=== PATIENT | female | born 1935 | race Caucasian/White ===

== ENCOUNTER 2016-11-18 08:46 | Emergency (ER) | payer MEDICARE, BC ==
[2016-11-18] MEDS ORDERED: IPRATROPIUM-ALBUTEROL 3 ML NEB INHALATION STA (09:02)
--- NOTE | 2016-11-18 09:12 | ED ---
SOB HPI - General Chief Complaint: Shortness of Breath Stated Complaint: chest pain, tightness, weakness Time Seen by Provider: 11/18/16 08:53 Source: patient, RN notes reviewed, old records reviewed Mode of arrival: wheelchair - History of Present Illness Initial Comments: This is a 81-year-old female History of overdose who states she was a smoker but quit in 1980 and complains of having shortness of breath this morning some nausea no chest also some dizziness. She states also had difficulty walking because of this. She denies any headache neck pain focal weakness or upper or lower extremities no fevers chills or sweats no overt cough or phlegm production no dysuria hematuria. She has no known diagnosed history of heart or lung disease. MD Complaint: shortness of breath - Related Data Home Medications Medication Instructions Recorded Confirmed Phenytoin Sodium Extended 300 mg PO HS 09/13/15 11/18/16 [Dilantin] Meloxicam [Mobic] 15 mg PO DAILY 11/18/16 11/18/16 Vit C/E/Zn/Coppr/Lutein/Zeaxan 1 cap PO BID 11/18/16 11/18/16 [Preservision Areds 2 Softgel] Vits A,C,E/Lutein/Minerals 1 tab PO DAILY 11/18/16 11/18/16 [Ocuvite with Lutein Tablet] Previous Rx's Medication Instructions Recorded Albuterol Inhaler [Ventolin Hfa 2 puff INHALATION Q6HR PRN #1 11/18/16 Inhaler] inhaler Allergies Allergy/AdvReac Type Severity Reaction Status Date / Time Penicillins Allergy Rash/Hives Verified 11/18/16 09:17 iodine AdvReac "passed Verified 11/18/16 09:17 out" Review of Systems ROS Statement: Those systems with pertinent positive or pertinent negative responses have been documented in the HPI. ROS Other: All systems not noted in ROS Statement are negative. Past Medical History Past Medical History: Seizure Disorder Additional Past Medical History / Comment(s): [id number] seizures, macular degeneration History of Any Multi-Drug Resistant Organisms: None Reported Past Surgical History: Back Surgery, Section, Hysterectomy Additional Past Surgical History / Comment(s): craniotomy during times of seizures, shoulder surgery, cyst removed from left breast Past Psychological History: No Psychological Hx Reported Smoking Status: Former smoker Past Alcohol Use History: Daily Past Drug Use History: None Reported General Exam - General Exam Comments Initial Comments: This is a well-developed well-nourished awake alert oriented 3 female General appearance: alert, in no apparent distress Head exam: Present: atraumatic, normocephalic, normal inspection Eye exam: Present: normal appearance, PERRL, EOMI. Absent: scleral icterus, conjunctival injection, periorbital swelling ENT exam: Present: normal exam, mucous membranes moist Neck exam: Present: normal inspection. Absent: tenderness, meningismus, lymphadenopathy Respiratory exam: Present: decreased breath sounds. Absent: respiratory distress, wheezes, rales, rhonchi, stridor Cardiovascular Exam: Present: regular rate, normal rhythm, normal heart sounds. Absent: systolic murmur, diastolic murmur, rubs, gallop, clicks GI/Abdominal exam: Present: soft, normal bowel sounds. Absent: distended, tenderness, guarding, rebound, rigid Extremities exam: Present: normal inspection, full ROM, normal capillary refill. Absent: tenderness, pedal edema, joint swelling, calf tenderness Back exam: Present: normal inspection Neurological exam: Present: alert, oriented X3, CN II-XII intact Psychiatric exam: Present: normal affect, normal mood Skin exam: Present: warm, dry, intact, normal color. Absent: rash Course Vital Signs 11/18/16 11/18/16 11/18/16 08:50 08:55 09:37 Temperature 97.5 F L Pulse Rate 62 62 Respiratory 18 Rate Blood Pressure 141/115 O2 Sat by Pulse 94 L 100 Oximetry 11/18/16 11/18/16 11/18/16 09:50 10:05 11:09 Temperature Pulse Rate 72 64 Respiratory 20 20 Rate Blood Pressure 120/58 O2 Sat by Pulse 98 Oximetry Medical Decision Making - Medical Decision Making Patient is asymptomatic does feel improved after the nebulizer treatment. A repeat labs show a normal potassium level. Patient will be discharged is follow -up with her doctor and return when necessary I did encourage her increase her oral fluids - Lab Data Result diagrams: 11/18/16 10:08 11/18/16 11:05 Lab Results 11/18/16 11/18/16 11/18/16 Range/Units 09:15 10:08 10:08 WBC 4.0 (3.8-10.6) k/uL RBC 4.47 (3.80-5.40) m/uL Hgb 14.4 (11.4-16.0) gm/dL Hct 43.5 (34.0-46.0) % MCV 97.2 (80.0-100.0) fL MCH 32.2 (25.0-35.0) pg MCHC 33.1 (31.0-37.0) g/dL RDW 13.1 (11.5-15.5) % Plt Count 250 (150-450) k/uL Neutrophils % 49 % Lymphocytes % 33 % Monocytes % 10 % Eosinophils % 5 % Basophils % 1 % Neutrophils # 2.0 (1.3-7.7) k/uL Lymphocytes # 1.3 (1.0-4.8) k/uL Monocytes # 0.4 (0-1.0) k/uL Eosinophils # 0.2 (0-0.7) k/uL Basophils # 0.0 (0-0.2) k/uL PT 11.1 (9.0-12.0) sec INR 1.1 (<1.1) APTT 27.6 (22.0-30.0) sec D-Dimer 0.20 (<0.60) mg/L FEU Sodium 139 (137-145) mmol/L Potassium 6.1 H (3.5-5.1) mmol/L Chloride 109 H (98-107) mmol/L Carbon Dioxide 20 L (22-30) mmol/L Anion Gap 10 mmol/L BUN 17 (7-17) mg/dL Creatinine 0.62 (0.52-1.04) mg/dL Est GFR (MDRD) Af Amer >60 (>60 ml/min/1.73 sqM) Est GFR (MDRD) Non-Af >60 (>60 ml/min/1.73 sqM) Glucose 107 H (74-99) mg/dL Calcium 9.9 (8.4-10.2) mg/dL Magnesium 2.2 (1.6-2.3) mg/dL Total Bilirubin 0.7 (0.2-1.3) mg/dL AST 37 H (14-36) U/L ALT 40 (9-52) U/L Alkaline Phosphatase 61 (38-126) U/L Total Creatine Kinase (30-135) U/L CK-MB (CK-2) (0.0-2.4) ng/mL CK-MB (CK-2) Rel Index Troponin I NT-Pro-B Natriuret Pep pg/mL Total Protein 7.6 (6.3-8.2) g/dL Albumin 4.3 (3.5-5.0) g/dL 11/18/16 11/18/16 11/18/16 Range/Units 10:08 10:08 11:05 WBC (3.8-10.6) k/uL RBC (3.80-5.40) m/uL Hgb (11.4-16.0) gm/dL Hct (34.0-46.0) % MCV (80.0-100.0) fL MCH (25.0-35.0) pg MCHC (31.0-37.0) g/dL RDW (11.5-15.5) % Plt Count (150-450) k/uL Neutrophils % % Lymphocytes % % Monocytes % % Eosinophils % % Basophils % % Neutrophils # (1.3-7.7) k/uL Lymphocytes # (1.0-4.8) k/uL Monocytes # (0-1.0) k/uL Eosinophils # (0-0.7) k/uL Basophils # (0-0.2) k/uL PT (9.0-12.0) sec INR (<1.1) APTT (22.0-30.0) sec D-Dimer (<0.60) mg/L FEU Sodium (137-145) mmol/L Potassium (3.5-5.1) mmol/L Chloride (98-107) mmol/L Carbon Dioxide (22-30) mmol/L Anion Gap mmol/L BUN (7-17) mg/dL Creatinine (0.52-1.04) mg/dL Est GFR (MDRD) Af Amer (>60 ml/min/1.73 sqM) Est GFR (MDRD) Non-Af (>60 ml/min/1.73 sqM) Glucose (74-99) mg/dL Calcium (8.4-10.2) mg/dL Magnesium (1.6-2.3) mg/dL Total Bilirubin (0.2-1.3) mg/dL AST (14-36) U/L ALT (9-52) U/L Alkaline Phosphatase (38-126) U/L Total Creatine Kinase 65 (30-135) U/L CK-MB (CK-2) 1.4 (0.0-2.4) ng/mL CK-MB (CK-2) Rel Index 2.2 Troponin I Cancelled <0.012 NT-Pro-B Natriuret Pep 253 pg/mL Total Protein (6.3-8.2) g/dL Albumin (3.5-5.0) g/dL 11/18/16 Range/Units 11:05 WBC (3.8-10.6) k/uL RBC (3.80-5.40) m/uL Hgb (11.4-16.0) gm/dL Hct (34.0-46.0) % MCV (80.0-100.0) fL MCH (25.0-35.0) pg MCHC (31.0-37.0) g/dL RDW (11.5-15.5) % Plt Count (150-450) k/uL Neutrophils % % Lymphocytes % % Monocytes % % Eosinophils % % Basophils % % Neutrophils # (1.3-7.7) k/uL Lymphocytes # (1.0-4.8) k/uL Monocytes # (0-1.0) k/uL Eosinophils # (0-0.7) k/uL Basophils # (0-0.2) k/uL PT (9.0-12.0) sec INR (<1.1) APTT (22.0-30.0) sec D-Dimer (<0.60) mg/L FEU Sodium (137-145) mmol/L Potassium 4.6 (3.5-5.1) mmol/L Chloride (98-107) mmol/L Carbon Dioxide (22-30) mmol/L Anion Gap mmol/L BUN (7-17) mg/dL Creatinine (0.52-1.04) mg/dL Est GFR (MDRD) Af Amer (>60 ml/min/1.73 sqM) Est GFR (MDRD) Non-Af (>60 ml/min/1.73 sqM) Glucose (74-99) mg/dL Calcium (8.4-10.2) mg/dL Magnesium (1.6-2.3) mg/dL Total Bilirubin (0.2-1.3) mg/dL AST (14-36) U/L ALT (9-52) U/L Alkaline Phosphatase (38-126) U/L Total Creatine Kinase (30-135) U/L CK-MB (CK-2) (0.0-2.4) ng/mL CK-MB (CK-2) Rel Index Troponin I NT-Pro-B Natriuret Pep pg/mL Total Protein (6.3-8.2) g/dL Albumin (3.5-5.0) g/dL - EKG Data -: EKG Interpreted by Co EKG shows normal: sinus rhythm (Sinus rhythm a rate of 79 DE interval 154 QRS 76 QT/QTC of 414/49 evidence a left exodeviation this is compared with EKG dated 09/11/15) - Radiology Data Radiology results: report reviewed (I did review the imaging and report no acute findings.), image reviewed Disposition Clinical Impression: Bronchospasm, acute, Dehydration Disposition: HOME SELF-CARE Condition: Good Instructions: Bronchospasm (ED), Dehydration (ED) Prescriptions: Albuterol Inhaler [Ventolin Hfa Inhaler] 2 puff INHALATION Q6HR PRN #1 inhaler PRN Reason: Dyspnea Referrals: Kenna Diaz DO [Primary Care Provider] - 1-2 days
[2016-11-18 09:46] LABS: Anion Gap 10 mmol/L; Calcium 9.9 mg/dL (8.4-10.2); Carbon Dioxide 20 mmol/L (22-30); Chloride 109 mmol/L (98-107); Glucose 107 mg/dL (74-99); Non-African American GFR(MDRD) >60 (>60 ml/min/1.73 sqM); Sodium 139 mmol/L (137-145); Total Bilirubin 0.7 mg/dL (0.2-1.3); Total Protein 7.6 g/dL (6.3-8.2)
[2016-11-18 09:48] LABS: Blood Urea Nitrogen 17 mg/dL (7-17); Potassium 6.1 mmol/L (3.5-5.1)
[2016-11-18 09:49] LABS: ALT 40 U/L (9-52); AST 37 U/L (14-36); Alkaline Phosphatase 61 U/L (38-126); Magnesium 2.2 mg/dL (1.6-2.3)
--- NOTE | 2016-11-18 10:29 | XR ---
EXAMINATION TYPE: XR chest 2V DATE OF EXAM: 11/18/2016 COMPARISON: 10/20/2015 HISTORY: Shortness of breath TECHNIQUE: Frontal and lateral views of the chest are obtained. FINDINGS: Scattered senescent parenchymal changes noted. Hyperinflation compatible with COPD. No evidence for infiltrate. No evidence for atelectasis. Heart size is stable. Mediastinal structures are stable and grossly unremarkable. No evidence for hilar prominence. Degenerative changes dorsal spine. IMPRESSION: 1. No evidence for acute pulmonary disease.
[2016-11-18 10:33] LABS: Basophils % (A) 1 %; CH 32.3; CHCM 33.3; Eosinophils # (A) 0.2 k/uL (0-0.7); Eosinophils % (A) 5 %; HCT 43.5 % (34.0-46.0); HDW 1.99; HGB 14.4 gm/dL (11.4-16.0); Luc # (Auto) 0.11; Luc % (Auto) 3; Lymphocytes # (A) 1.3 k/uL (1.0-4.8); Lymphocytes % (A) 33 %; MCH 32.2 pg (25.0-35.0); MCHC 33.1 g/dL (31.0-37.0); MCV 97.2 fL (80.0-100.0); Mean Platelet Volume 7.6; Monocytes # (A) 0.4 k/uL (0-1.0); Monocytes % (A) 10 %; Neutrophils % (A) 49 %; RBC 4.47 m/uL (3.80-5.40); RDW 13.1 % (11.5-15.5); WBC (Perox) 4.14
[2016-11-18 10:36] LABS: INR 1.1 (<1.1); Partial Thromboplastin Time 27.6 sec (22.0-30.0); Prothrombin Time 11.1 sec (9.0-12.0)
[2016-11-18 10:43] LABS: Creatine Kinase MB 1.4 ng/mL (0.0-2.4)
[2016-11-18 12:30] VITALS: BP 106/53; PULSE 63; RESP 18; TEMP 98.2
== END 2016-11-18 12:49 | disposition home or self-care (01) ==
LOC: EC 08:46
DX: J98.01 Acute bronchospasm (principal); E86.0 Dehydration; G40.909 Epilepsy, unspecified, not intractable, without status epilepticus; Z87.891 Personal history of nicotine dependence; Z79.1 Long term (current) use of non-steroidal anti-inflammatories (NSAID); Z79.899 Other long term (current) drug therapy; Z88.0 Allergy status to penicillin; Z91.09 Other allergy status, other than to drugs and biological substances; Z86.69 Personal history of other diseases of the nervous system and sense organs
CPT/HCPCS: 36415; 71020; 80053; 82550; 82553; 83735; 83880; 84132; 84484; 85025; 85379; 85610; 85730; 93005; 94640; 99285

== ENCOUNTER 2018-07-26 06:21 | Observation (INO) | payer MEDICARE, BC ==
[2018-07-26] MEDS ORDERED: SODIUM CHLORIDE 0.9% 500 ML 500 ML IV ONE (06:48)
[2018-07-26] MEDS ORDERED: ACETAMINOPHEN TAB 325 MG TAB PO STA (06:49)
[2018-07-26] MEDS ORDERED: IBUPROFEN 600 MG TAB PO STA (07:11)
--- NOTE | 2018-07-26 07:11 | ED ---
General Adult HPI - General Source: patient Mode of arrival: ambulatory Limitations: no limitations <BaileeAshish - Last Filed: 07/26/18 07:10> - General Source: RN notes reviewed <Chad Lyon - Last Filed: 07/26/18 07:16> - General Chief complaint: Upper Respiratory Infection Stated complaint: Difficulty Breathing, Chest Pain Time Seen by Provider: 07/26/18 07:16 - Related Data Home Medications Medication Instructions Recorded Confirmed Phenytoin Sodium Extended 300 mg PO HS 09/13/15 11/18/16 [Dilantin] Meloxicam [Mobic] 15 mg PO DAILY 11/18/16 11/18/16 Vit C/E/Zn/Coppr/Lutein/Zeaxan 1 cap PO BID 11/18/16 11/18/16 [Preservision Areds 2 Softgel] Vits A,C,E/Lutein/Minerals 1 tab PO DAILY 11/18/16 11/18/16 [Ocuvite with Lutein Tablet] Previous Rx's Medication Instructions Recorded Albuterol Inhaler [Ventolin Hfa 2 puff INHALATION Q6HR PRN #1 11/18/16 Inhaler] inhaler Allergies Allergy/AdvReac Type Severity Reaction Status Date / Time Penicillins Allergy Rash/Hives Verified 07/26/18 06:26 iodine AdvReac "passed Verified 07/26/18 06:26 out" Review of Systems ROS Other: All systems not noted in ROS Statement are negative. <BaileeAshish - Last Filed: 07/26/18 07:10> ROS Other: All systems not noted in ROS Statement are negative. <Chad Lyon - Last Filed: 07/26/18 07:16> ROS Statement: Those systems with pertinent positive or pertinent negative responses have been documented in the HPI. Past Medical History Past Medical History: Seizure Disorder Additional Past Medical History / Comment(s): [id number] seizures, macular degeneration History of Any Multi-Drug Resistant Organisms: None Reported Past Surgical History: Back Surgery, Section, Hysterectomy Additional Past Surgical History / Comment(s): craniotomy during times of seizures, shoulder surgery, cyst removed from left breast Past Psychological History: No Psychological Hx Reported Smoking Status: Former smoker Past Alcohol Use History: Daily Past Drug Use History: None Reported <BaileeAshish - Last Filed: 07/26/18 07:10> General Exam Limitations: no limitations <Ashish Morocho - Last Filed: 07/26/18 07:10> Course <Ashish Morocho - Last Filed: 07/26/18 07:10> <Chad Lyon - Last Filed: 07/26/18 07:16> Vital Signs 07/26/18 07/26/18 07/26/18 06:24 07:00 07:02 Temperature 100.8 F H 102.5 F H Pulse Rate 113 H 105 H Respiratory 24 20 18 Rate Blood Pressure 152/85 144/72 O2 Sat by Pulse 95 98 Oximetry - Reevaluation(s) Reevaluation #1: 07/26/18 06:43 Case discussed with triage and initial orders entered to expedite outpatient care. (Ashish Morocho) Disposition <Ashish Morocho - Last Filed: 07/26/18 07:10> <Chad Lyon - Last Filed: 07/26/18 07:16> Referrals: Kenna Diaz DO [Primary Care Provider] - 1-2 days
[2018-07-26] MEDS ORDERED: OSELTAMIVIR 75 MG CAP PO STA (07:20)
--- NOTE | 2018-07-26 07:20 | ED ---
General Adult HPI - General Source: patient Mode of arrival: ambulatory Limitations: no limitations <Ashish Morocho - Last Filed: 07/26/18 07:20> - General Source: RN notes reviewed <Chad Lyon - Last Filed: 07/26/18 08:44> - General Chief complaint: Upper Respiratory Infection Stated complaint: Difficulty Breathing, Chest Pain Time Seen by Provider: 07/26/18 06:43 - History of Present Illness Initial comments: This is an 83-year-old female who presents emergency Department with a three-day history of cough. Patient states yesterday got considerably worse and she was coughing quite a bit of sputum. Patient states she did get influenza shot. Patient states she has had a high fever and today she felt like she had a brick on her chest and it made her come to the emergency department. On arrival patient was above 140. Patient also states she's a little short of breath as well. Patient denies any abdominal pain. Patient denies any nausea vomiting diarrhea. Patient denies headache patient denies numbness weakness. Patient denies lightheadedness dizziness or near syncopal episode. (Chad Lyon) - Related Data Home Medications Medication Instructions Recorded Confirmed Phenytoin Sodium Extended 300 mg PO HS 09/13/15 07/26/18 [Dilantin] Meloxicam [Mobic] 15 mg PO Q48H 11/18/16 07/26/18 Vit C/E/Zn/Coppr/Lutein/Zeaxan 1 cap PO BID 11/18/16 07/26/18 [Preservision Areds 2 Softgel] Cholecalciferol [Vitamin D3] 1,000 unit PO DAILY 07/26/18 07/26/18 Allergies Allergy/AdvReac Type Severity Reaction Status Date / Time Penicillins Allergy Rash/Hives Verified 07/26/18 08:16 iodine AdvReac "passed Verified 07/26/18 08:16 out" Review of Systems ROS Other: All systems not noted in ROS Statement are negative. <Ashish Morocho - Last Filed: 07/26/18 07:20> ROS Other: All systems not noted in ROS Statement are negative. <Chad Lyon - Last Filed: 07/26/18 08:44> ROS Statement: Those systems with pertinent positive or pertinent negative responses have been documented in the HPI. Past Medical History Past Medical History: Seizure Disorder Additional Past Medical History / Comment(s): [id number] seizures, macular dege neration History of Any Multi-Drug Resistant Organisms: None Reported Past Surgical History: Back Surgery, Section, Hysterectomy Additional Past Surgical History / Comment(s): craniotomy during times of seizures, shoulder surgery, cyst removed from left breast Past Psychological History: No Psychological Hx Reported Smoking Status: Former smoker Past Alcohol Use History: Daily Past Drug Use History: None Reported <Ashish Morocho - Last Filed: 07/26/18 07:20> General Exam Limitations: no limitations <Ashish Morocho - Last Filed: 07/26/18 07:20> <Chad Lyon - Last Filed: 07/26/18 08:44> - General Exam Comments Initial Comments: GENERAL: Patient is well-developed and well-nourished. Patient is nontoxic and well- hydrated and is in mild distress. ENT: Neck is soft and supple. No significant lymphadenopathy is noted. Oropharynx is clear. Moist mucous membranes. Neck has full range of motion without eliciting any pain. EYES: The sclera were anicteric and conjunctiva were pink and moist. Extraocular movements were intact and pupils were equal round and reactive to light. Eyelids were unremarkable. PULMONARY: Patient is a few crackles in the right base CARDIOVASCULAR: Patient is tachycardic at about 110 beats a minute. ABDOMEN: Soft and nontender with normal bowel sounds. No palpable organomegaly was noted. There is no palpable pulsatile mass. SKIN: Skin is clear with no lesions or rashes and otherwise unremarkable. NEUROLOGIC: Patient is alert and oriented x3. Cranial nerves II through XII are grossly intact. Motor and sensory are also intact. Normal speech, volume and content. Symmetrical smile. MUSCULOSKELETAL: Normal extremities with adequate strength and full range of motion. No lower extremity swelling or edema. No calf tenderness. LYMPHATICS: No significant lymphadenopathy is noted PSYCHIATRIC: Normal psychiatric evaluation. (Chad Lyon) Course <Ashish Morocho - Last Filed: 07/26/18 07:20> <Chad Lyon - Last Filed: 07/26/18 08:44> Vital Signs 07/26/18 07/26/18 07/26/18 06:24 07:00 07:02 Temperature 100.8 F H 102.5 F H Pulse Rate 113 H 110 H 105 H Respiratory 24 20 18 Rate Blood Pressure 152/85 144/72 144/72 O2 Sat by Pulse 95 98 Oximetry 07/26/18 07:30 Temperature Pulse Rate 137 H Respiratory 22 Rate Blood Pressure O2 Sat by Pulse 100 Oximetry - Reevaluation(s) Reevaluation #1: 07/26/18 06:43 case discussed with triage and orders entered to expedite patient care. (Ashish Morocho) Medical Decision Making <Ashish Morocho - Last Filed: 07/26/18 07:20> - Lab Data Result diagrams: 07/26/18 06:55 07/26/18 06:55 <Chad Lyon - Last Filed: 07/26/18 08:44> - Medical Decision Making EKG shows supraventricular tachycardia with occasional PVC at a rate of 144 bpm QRS is 76 QT interval is 286 QTC is 442. Patient's EKG shows no ST segment elevation however there is some slight ST segment depression in precordial leads V3 through V6. Repeat EKG was done with the patient's heart rate slowed it showed a sinus tachycardia at 107 bpm MN interval 174 QRS is 70 QT interval 340 QTC is 453. Patient's EKG shows no ST segment elevation or depression. Patient's chest x-ray showed no obvious infiltrate. Patient received Tamiflu in the emergency department because she was influenza A+. Patient's heart rate came down nicely after the temperature came down and her chest heaviness has been relieved. (Chad Lyon) - Lab Data Lab Results 07/26/18 07/26/18 07/26/18 Range/Units 06:51 06:55 06:55 WBC 9.2 (3.8-10.6) k/uL RBC 4.29 (3.80-5.40) m/uL Hgb 13.4 (11.4-16.0) gm/dL Hct 42.1 (34.0-46.0) % MCV 98.1 (80.0-100.0) fL MCH 31.2 (25.0-35.0) pg MCHC 31.8 (31.0-37.0) g/dL RDW 12.8 (11.5-15.5) % Plt Count 307 (150-450) k/uL Neutrophils % 77 % Lymphocytes % 10 % Monocytes % 8 % Eosinophils % 2 % Basophils % 1 % Neutrophils # 7.1 (1.3-7.7) k/uL Lymphocytes # 0.9 L (1.0-4.8) k/uL Monocytes # 0.7 (0-1.0) k/uL Eosinophils # 0.2 (0-0.7) k/uL Basophils # 0.1 (0-0.2) k/uL PT (9.0-12.0) sec INR (<1.2) APTT (22.0-30.0) sec Sodium 139 (137-145) mmol/L Potassium 4.6 (3.5-5.1) mmol/L Chloride 105 (98-107) mmol/L Carbon Dioxide 25 (22-30) mmol/L Anion Gap 9 mmol/L BUN 14 (7-17) mg/dL Creatinine 0.53 (0.52-1.04) mg/dL Est GFR (CKD-EPI)AfAm >90 (>60 ml/min/1.73 sqM) Est GFR (CKD-EPI)NonAf 90 (>60 ml/min/1.73 sqM) Glucose 116 H (74-99) mg/dL Plasma Lactic Acid Dangelo (0.7-2.0) mmol/L Calcium 9.7 (8.4-10.2) mg/dL Total Bilirubin 0.5 (0.2-1.3) mg/dL AST 33 (14-36) U/L ALT 44 (9-52) U/L Alkaline Phosphatase 77 (38-126) U/L Troponin I (0.000-0.034) ng/mL Total Protein 7.9 (6.3-8.2) g/dL Albumin 4.4 (3.5-5.0) g/dL Influenza Type A RNA Detected H (Not Detectd) Influenza Type B (PCR) Not Detected (Not Detectd) 07/26/18 07/26/18 07/26/18 Range/Units 06:55 06:55 06:55 WBC (3.8-10.6) k/uL RBC (3.80-5.40) m/uL Hgb (11.4-16.0) gm/dL Hct (34.0-46.0) % MCV (80.0-100.0) fL MCH (25.0-35.0) pg MCHC (31.0-37.0) g/dL RDW (11.5-15.5) % Plt Count (150-450) k/uL Neutrophils % % Lymphocytes % % Monocytes % % Eosinophils % % Basophils % % Neutrophils # (1.3-7.7) k/uL Lymphocytes # (1.0-4.8) k/uL Monocytes # (0-1.0) k/uL Eosinophils # (0-0.7) k/uL Basophils # (0-0.2) k/uL PT 10.7 (9.0-12.0) sec INR 1.0 (<1.2) APTT 24.3 (22.0-30.0) sec Sodium (137-145) mmol/L Potassium (3.5-5.1) mmol/L Chloride (98-107) mmol/L Carbon Dioxide (22-30) mmol/L Anion Gap mmol/L BUN (7-17) mg/dL Creatinine (0.52-1.04) mg/dL Est GFR (CKD-EPI)AfAm (>60 ml/min/1.73 sqM) Est GFR (CKD-EPI)NonAf (>60 ml/min/1.73 sqM) Glucose (74-99) mg/dL Plasma Lactic Acid Dangelo 1.4 (0.7-2.0) mmol/L Calcium (8.4-10.2) mg/dL Total Bilirubin (0.2-1.3) mg/dL AST (14-36) U/L ALT (9-52) U/L Alkaline Phosphatase (38-126) U/L Troponin I <0.012 (0.000-0.034) ng/mL Total Protein (6.3-8.2) g/dL Albumin (3.5-5.0) g/dL Influenza Type A RNA (Not Detectd) Influenza Type B (PCR) (Not Detectd) Disposition <Ashish Morocho - Last Filed: 07/26/18 07:20> Time of Disposition: 08:44 <Chad Lyon - Last Filed: 07/26/18 08:44> Clinical Impression: Influenza A, SVT (supraventricular tachycardia), Chest pain Disposition: ADMITTED IP TO THIS HOSP Referrals: Kenna Diaz DO [Primary Care Provider] - 1-2 days
[2018-07-26] MEDS: SODIUM CHLORIDE 0.9% 500 ML 500 ML IV SCH ×2 (07:31→08:09)
[2018-07-26 07:33] LABS: Basophils # (A) 0.1 k/uL (0-0.2); Basophils % (A) 1 %; Eosinophils # (A) 0.2 k/uL (0-0.7); Eosinophils % (A) 2 %; HCT 42.1 % (34.0-46.0); HGB 13.4 gm/dL (11.4-16.0); Lymphocytes # (A) 0.9 k/uL (1.0-4.8); Lymphocytes % (A) 10 %; MCH 31.2 pg (25.0-35.0); MCHC 31.8 g/dL (31.0-37.0); MCV 98.1 fL (80.0-100.0); Mean Platelet Volume 6.5; Monocytes # (A) 0.7 k/uL (0-1.0); Monocytes % (A) 8 %; Neutrophils # (A) 7.1 k/uL (1.3-7.7); Neutrophils % (A) 77 %; Platelet Count 307 k/uL (150-450); RBC 4.29 m/uL (3.80-5.40); RDW 12.8 % (11.5-15.5); WBC 9.2 k/uL (3.8-10.6)
[2018-07-26 07:43] LABS: Partial Thromboplastin Time 24.3 sec (22.0-30.0); Prothrombin Time 10.7 sec (9.0-12.0)
[2018-07-26 07:44] LABS: AST 33 U/L (14-36); Albumin 4.4 g/dL (3.5-5.0); Anion Gap 9 mmol/L; Blood Urea Nitrogen 14 mg/dL (7-17); Calcium 9.7 mg/dL (8.4-10.2); Carbon Dioxide 25 mmol/L (22-30); Chloride 105 mmol/L (98-107); Glucose 116 mg/dL (74-99); Potassium 4.6 mmol/L (3.5-5.1); Sodium 139 mmol/L (137-145); Total Bilirubin 0.5 mg/dL (0.2-1.3); Total Protein 7.9 g/dL (6.3-8.2)
[2018-07-26 07:45] LABS: ALT 44 U/L (9-52); Alkaline Phosphatase 77 U/L (38-126)
--- NOTE | 2018-07-26 08:15 | XR ---
EXAMINATION TYPE: XR chest 2V DATE OF EXAM: 07/26/2018 COMPARISON: 11/18/2016 HISTORY: 83-year-old female with fever TECHNIQUE: PA and lateral views FINDINGS: Heart normal size. Bilateral hilar prominence. Some focal density right mid to lower lung and some ad ditional patchy opacity along the left heart margin. Hyperinflation with flattening of the hemidiaphr agms. IMPRESSION: 1. COPD and focal patchy opacity at the left midlung could represent small area of pneumonia. 2. Some subtle nodular density right midlung and bilateral hilar prominence. Hilar prominence could r eflect underlying pulmonary arterial hypertension. Given patient's increased risk for development of lung cancer, recommend nonemergent follow-up CT chest after any potential treatment for more detailed assessment of the lung parenchyma.
[2018-07-26] MEDS ORDERED: NITROGLYCERIN SL TABS 0.4 MG TAB SUBLINGUAL PRN (08:46)
[2018-07-26] MEDS ORDERED: ASPIRIN 81 MG PO STA (08:46)
[2018-07-26] MEDS ORDERED: IBUPROFEN 400 MG TAB PO PRN (08:53)
[2018-07-26 09:21] LABS: Appearance,Urine Clear (Clear); Bilirubin,Urine Negative (Negative); Blood,Urine Negative (Negative); Color,Urine Colorless; Glucose,Urine (UA) Negative (Negative); Ketones,Urine Negative (Negative); Leukocyte Esterase,Urine Negative (Negative); Nitrite,Urine Negative (Negative); Protein,Urine Negative (Negative); Specific Gravity,Urine 1.007 (1.001-1.035); Urobilinogen,Urine <2.0 mg/dL (<2.0)
[2018-07-26] MEDS: NITROGLYCERIN OINT 1 INCH/GM PACKET TOPICAL SCH ×3 (10:52→23:10)
--- NOTE | 2018-07-26 13:00 | P.HPIM ---
History of Present Illness Chief Complaint: Chest pressure, cough This very pleasant 83-year-old female. The patient says that her was sick with cough a few days ago and she started coughing 3 days ago initially the cough is dry but later on started to produce greenish phlegm. She also started having chest pressure and heaviness in the chest. She was also noticing that she's having racing heart. The so she came into the ER for further urology management. She otherwise does not complain of any fever or chills, no abdominal pain, nausea and vomiting, no diarrhea constipation, no headache, loss of vision or blurry vision, no tingling numbness on in the extremities, no itch or rash she does not complain of any dizziness or lightheadedness next ER course-in the ER, her heart rate was in 140s. EKG shows SVT in the beginning. The BP was 170/58 satting 96% on room air respirations 17-22. Labwork was done which showed WBC 9.2 hemoglobin 13.4 platelets 307 sodium 139 potassium 4.6 and BUN 42 creatinine 0.53 lactic acid is 1.4 influenza A was positive, troponin was 0.012 chest x-ray showed left mid lung pneumonia. They recommended follow-up CAT scan after adequate treatment to rule out cancer. Patient was given Tamiflu and admitted to the hospitalist service for further evaluation and management Review of Systems All systems: negative Past Medical History Past Medical History: Cancer, Eye Disorder, Osteoarthritis (OA), Seizure Disorder Additional Past Medical History / Comment(s): [id number] seizures, R eye macular degeneration, told she has "alittle irregular heartbeat at times.", arthritis in her back, skin cancer with removal. History of Any Multi-Drug Resistant Organisms: None Reported Past Surgical History: Back Surgery, Breast Surgery, Section, Hysterectomy, Orthopedic Surgery Additional Past Surgical History / Comment(s): Brain biopsy during times of seizures, R submandibular ductoplasty, R shoulder rotator cuff surgery, low back surgery, cyst removed from left breast, colonoscopy. Past Anesthesia/Blood Transfusion Reactions: No Reported Reaction Additional Past Anesthesia/Blood Transfusion Reaction / Comment(s): Pt has never received blood. Smoking Status: Former smoker - Past Family History Father Family Medical History: COPD Additional Family Medical History / Comment(s): Father was a smoker and had emphysema. Mother Family Medical History: No Reported History Additional Family Medical History / Comment(s): Mother was healthy and lived to be 85yrs old. Brother(s) Family Medical History: Cancer Additional Family Medical History / Comment(s): Brother had esophageal cancer. Medications and Allergies Home Medications Medication Instructions Recorded Confirmed Type Phenytoin Sodium Extended 300 mg PO HS 09/13/15 07/26/18 History [Dilantin] Meloxicam [Mobic] 15 mg PO Q48H 11/18/16 07/26/18 History Vit C/E/Zn/Coppr/Lutein/Zeaxan 1 cap PO BID 11/18/16 07/26/18 History [Preservision Areds 2 Softgel] Cholecalciferol [Vitamin D3] 1,000 unit PO DAILY 07/26/18 07/26/18 History Allergies Allergy/AdvReac Type Severity Reaction Status Date / Time Penicillins Allergy Rash/Hives Verified 07/26/18 08:16 iodine AdvReac "passed Verified 07/26/18 08:16 out" Physical Exam Vitals: Vital Signs Temp Pulse Pulse Resp BP BP Pulse Ox 07/26/18 11:35 108 H 17 07/26/18 11:33 98.3 F 108 H 17 117/58 96 07/26/18 09:45 98.5 F 104 H 17 120/57 96 07/26/18 09:07 105 H 22 108/63 97 07/26/18 09:00 105 H 22 130/66 07/26/18 08:53 99.4 F 07/26/18 08:30 104 H 22 110/68 100 07/26/18 08:00 101 H 22 144/72 99 07/26/18 07:30 137 H 22 100 07/26/18 07:02 102.5 F H 105 H 18 144/72 98 07/26/18 07:00 110 H 20 144/72 07/26/18 06:24 100.8 F H 113 H 24 152/85 95 Intake and Output 07/25/18 07/26/18 07/26/18 22:59 06:59 14:59 Intake Total 10 Balance 10 Intake: IV 10 Invasive Line 2 10 Other: Weight 45.813 kg On exam, alert and oriented x3. HEENT: Conjunctivae normal. eyes normal. NECK: No JVD. No thyroid enlargement. No LNs CARDIOVASCULAR: S1, S2 positive tachycardic RESPIRATION: Patient is having crackles more on the left side of the lung ABDOMEN: Soft, nontender . No guarding. no masses palpable. No ascites, No hepatosplenomegaly.Bowel sounds heard. LEGS: No edema. no swelling NERVOUS SYSTEM: Cranial N 2-12 grossly normal. Moves all 4 limbs. No focal deficits. No sensory deficit. No signs of cerebellar dysfucntion. Skin: no ulcer no rash Results CBC & Chem 7: 07/26/18 06:55 07/26/18 06:55 Labs: Abnormal Lab Results - Last 24 Hours (Table) 07/26/18 07/26/18 07/26/18 Range/Units 06:51 06:55 06:55 Lymphocytes # 0.9 L (1.0-4.8) k/uL Glucose 116 H (74-99) mg/dL Influenza Type A RNA Detected H (Not Detectd) Thrombosis Risk Factor Assmnt - Choose All That Apply Any of the Below Risk Factors Present?: Yes Other Risk Factors: Yes Each Risk Factor Represents 2 Points: Malignancy Each Risk Factor Represents 3 Points: Age 75 years or older Other congenital or acquired thrombophilia - If yes, enter type in comment: No Thrombosis Risk Factor Assessment Total Risk Factor Score: 5 Thrombosis Risk Factor Assessment Level: High Risk Assessment and Plan Assessment: - Left lung pneumonia - Influenza A - SVT now in sinus tach - History of COPD and - History of seizures Plan - We'll admit the patient to [facility] [place] with telemetry - We'll start the patient Levaquin and continue Tamiflu - The patient will need an computed tomography scan of the chest as an outpatient after 4 weeks - Cardiology on board, will order for echocardiogram and monitor troponin levels - We'll resume rest of the patient's home medications - DVT and GI prophylaxis - We'll order for lab work in the morning - Expected length of stay more than 2 midnights - Patient is full code Time with Patient: Greater than 30
[2018-07-26] MEDS ORDERED: IPRATROPIUM-ALBUTEROL 3 ML NEB INHALATION PRN (13:01)
--- NOTE | 2018-07-26 15:25 | P.CRDCN ---
History of Present Illness Consult date: 07/26/18 History of present illness: This is a 83-year-old female with no significant past cardiac history, has been having symptoms of cough, shortness of breath and flulike symptoms for the last 3 to 4 days. Her also has similar problem. Patient was also feeling intermittent palpitations. She complained of some heaviness in the chest, which reminded her of for pneumonia that she had in the past. Patient was seen in the emergency room. She was found to have tachyarrhythmia which appears to be atypical fibrillation with rapid ventricular response. Patient converted back to sinus rhythm. She is being treated for influenza A and pneumonia. No history of previous atrial fibrillation. Most of hypertension, diabetes, previous myocardial infarction or strokes. We will going to initiate her on heparin drip and convert to oral anti-cognition therapy later on. We'll get an echocardiogram. Patient will initiate on beta blockers. Further recommendations depend upon the clinical course. Review of Systems As per the chart Past Medical History Past Medical History: Cancer, Eye Disorder, Osteoarthritis (OA), Seizure Disorder Additional Past Medical History / Comment(s): [id number] seizures, R eye macular degeneration, told she has "alittle irregular heartbeat at times.", arthritis in her back, skin cancer with removal. History of Any Multi-Drug Resistant Organisms: None Reported Past Surgical History: Back Surgery, Breast Surgery, Section, Hysterectomy, Orthopedic Surgery Additional Past Surgical History / Comment(s): Brain biopsy during times of seizures, R submandibular ductoplasty, R shoulder rotator cuff surgery, low back surgery, cyst removed from left breast, colonoscopy. Past Anesthesia/Blood Transfusion Reactions: No Reported Reaction Additional Past Anesthesia/Blood Transfusion Reaction / Comment(s): Pt has never received blood. Smoking Status: Former smoker - Past Family History Father Family Medical History: COPD Additional Family Medical History / Comment(s): Father was a smoker and had emphysema. Mother Family Medical History: No Reported History Additional Family Medical History / Comment(s): Mother was healthy and lived to be 85yrs old. Brother(s) Family Medical History: Cancer Additional Family Medical History / Comment(s): Brother had esophageal cancer. Medications and Allergies Home Medications Medication Instructions Recorded Confirmed Type Phenytoin Sodium Extended 300 mg PO HS 09/13/15 07/26/18 History [Dilantin] Meloxicam [Mobic] 15 mg PO Q48H 11/18/16 07/26/18 History Vit C/E/Zn/Coppr/Lutein/Zeaxan 1 cap PO BID 11/18/16 07/26/18 History [Preservision Areds 2 Softgel] Cholecalciferol [Vitamin D3] 1,000 unit PO DAILY 07/26/18 07/26/18 History Allergies Allergy/AdvReac Type Severity Reaction Status Date / Time Penicillins Allergy Rash/Hives Verified 07/26/18 08:16 iodine AdvReac "passed Verified 07/26/18 08:16 out" Physical Exam Vitals: Vital Signs Temp Pulse Pulse Resp BP BP Pulse Ox 07/26/18 11:35 108 H 17 07/26/18 11:33 98.3 F 108 H 17 117/58 96 07/26/18 09:45 98.5 F 104 H 17 120/57 96 07/26/18 09:07 105 H 22 108/63 97 07/26/18 09:00 105 H 22 130/66 07/26/18 08:53 99.4 F 07/26/18 08:30 104 H 22 110/68 100 07/26/18 08:00 101 H 22 144/72 99 07/26/18 07:30 137 H 22 100 07/26/18 07:02 102.5 F H 105 H 18 144/72 98 07/26/18 07:00 110 H 20 144/72 07/26/18 06:24 100.8 F H 113 H 24 152/85 95 Intake and Output 07/26/18 07/26/18 07/26/18 06:59 14:59 22:59 Intake Total 370 Balance 370 Intake: IV 10 Invasive Line 2 10 Oral 360 Other: Weight 45.813 kg GENERAL EXAM: Patient is alert and oriented and doesn't appear to be in any acute distress HEENT: Normocephalic. Normal reaction of pupils, equal size, normal range of extraocular motion. No erythema or exudates in the throat. NECK: No masses, no nuchal rigidity. CHEST: No chest wall deformity. LUNGS: Equal air entry with no crackles or wheeze. HEART: S1 and S2 normal with no audible mumurs or gallops. Regular rhythm, femorals equal on both sides.. ABDOMEN: No hepatosplenomegaly, normal bowel sounds, no guarding or rigidity. SKIN: No rashes CENTRAL NERVOUS SYSTEM: No focal deficits. EXTREMITIES: No cyanosis, clubbing or edema. Results 07/26/18 06:55 07/26/18 06:55 Cardiac Enzymes 07/26/18 07/26/18 07/26/18 Range/Units 06:55 06:55 12:56 AST 33 (14-36) U/L Troponin I <0.012 <0.012 (0.000-0.034) ng/mL Coagulation 07/26/18 Range/Units 06:55 PT 10.7 (9.0-12.0) sec APTT 24.3 (22.0-30.0) sec CBC 07/26/18 Range/Units 06:55 WBC 9.2 (3.8-10.6) k/uL RBC 4.29 (3.80-5.40) m/uL Hgb 13.4 (11.4-16.0) gm/dL Hct 42.1 (34.0-46.0) % Plt Count 307 (150-450) k/uL Comprehensive Metabolic Panel 07/26/18 Range/Units 06:55 Sodium 139 (137-145) mmol/L Potassium 4.6 (3.5-5.1) mmol/L Chloride 105 (98-107) mmol/L Carbon Dioxide 25 (22-30) mmol/L BUN 14 (7-17) mg/dL Creatinine 0.53 (0.52-1.04) mg/dL Glucose 116 H (74-99) mg/dL Calcium 9.7 (8.4-10.2) mg/dL AST 33 (14-36) U/L ALT 44 (9-52) U/L Alkaline Phosphatase 77 (38-126) U/L Total Protein 7.9 (6.3-8.2) g/dL Albumin 4.4 (3.5-5.0) g/dL Current Medications Generic Name Dose Route Start Last Admin Trade Name Freq PRN Reason Stop Dose Admin Acetaminophen 650 mg 07/26/18 08:53 Tylenol Tab PO Q6HR PRN Fever and/ or MILD Pain Albuterol/Ipratropium 3 ml 07/26/18 13:01 Duoneb 0.5 Mg-3 Mg/3 Ml Soln INHALATION RT-QID PRN Shortness Of Breath Or Wheezing Aspirin 325 mg 07/27/18 09:00 Aspirin PO DAILY [facility] Cholecalciferol 1,000 unit 07/27/18 09:00 Vitamin D3 PO DAILY NARINDER Levofloxacin 750 mg/ IV 150 mls @ 100 mls/hr 07/26/18 14:00 Solution IVPB Q24H [facility]ER Ibuprofen 400 mg 07/26/18 08:53 07/26/18 10:53 Motrin PO 400 mg Q6HR PRN Administration MODERATE Pain Multivitamins/Minerals 1 each 07/26/18 21:00 Ivite PO BID N[facility]ER Nitroglycerin 1 inch 07/26/18 12:00 07/26/18 10:52 Nitro-Bid Oint TOPICAL 1 inch Q6HR N[facility]ER Administration Nitroglycerin 0.4 mg 07/26/18 08:46 Nitrostat SUBLINGUAL Q5M PRN Chest Pain Oseltamivir Phosphate 30 mg 07/26/18 21:00 Tamiflu PO 07/30/18 21:01 Q12HR NARINDER Phenytoin Sodium 300 mg 07/26/18 21:00 Dilantin PO HS [facility]ER Intake and Output 07/26/18 07/26/18 07/26/18 06:59 14:59 22:59 Intake Total 370 Balance 370 Intake: IV 10 Invasive Line 2 10 Oral 360 Other: Weight 45.813 kg 07/26/18 06:55 07/26/18 06:55 EKG Interpretations (text) Initial EKG showed atrial fibrillation with rapid ventricular response Assessment and Plan (1) Paroxysmal atrial fibrillation Current Visit: Yes Status: Acute Code(s): I48.0 - PAROXYSMAL ATRIAL FIBRILLATION SNOMED Code(s): 234924219 (2) Chest pain Current Visit: Yes Status: Acute Code(s): R07.9 - CHEST PAIN, UNSPECIFIED SNOMED Code(s): 83264515 (3) Influenza A Current Visit: Yes Status: Acute Code(s): J10.1 - FLU DUE TO OTH IDENT INFLUENZA VIRUS W OTH RESP MANIFEST SNOMED Code(s): 300202057 Plan: Continue to follow patient cardiac enzymes. Echocardiogram. Patient will initiate on beta blockers and also IV heparin. Will switch to by mouth anticoagulation therapy. Further recommendations depend upon clinical course.
[2018-07-26] MEDS ORDERED: HEPARIN SODIUM,PORCINE 5,000 UNIT/ML 1 ML VIAL IV ONE (15:36)
[2018-07-26] MEDS ORDERED: HEPARIN SODIUM,PORCINE 5,000 UNIT/ML 1 ML VIAL IV PRN (15:36)
[2018-07-26] MEDS ORDERED: HEPARIN SOD,PORK IN 0.45% NACL 25,000 UNIT in 0.45% NACL 1 250ML.BAG IV SCH (15:45)
[2018-07-26] MEDS: LEVOFLOXACIN 750MG-D5W PMX 750 MG in DEXTROSE/WATER 1 150ML.BAG IVPB SCH (15:56)
[2018-07-26 16:15] LABS: Basophils % (A) 1 %; Eosinophils # (A) 0.1 k/uL (0-0.7); Eosinophils % (A) 1 %; HCT 36.9 % (34.0-46.0); HGB 12.2 gm/dL (11.4-16.0); Lymphocytes # (A) 0.8 k/uL (1.0-4.8); Lymphocytes % (A) 9 %; MCH 32.4 pg (25.0-35.0); MCHC 33.1 g/dL (31.0-37.0); Mean Platelet Volume 6.4; Monocytes # (A) 0.4 k/uL (0-1.0); Monocytes % (A) 5 %; Neutrophils # (A) 7.3 k/uL (1.3-7.7); Neutrophils % (A) 83 %; Platelet Count 261 k/uL (150-450); RBC 3.76 m/uL (3.80-5.40); RDW 12.8 % (11.5-15.5); WBC 8.7 k/uL (3.8-10.6)
[2018-07-26 16:26] LABS: Partial Thromboplastin Time 27.7 sec (22.0-30.0)
[2018-07-26] MEDS: ACETAMINOPHEN TAB 325 MG TAB PO PRN ×2 (17:06→23:13)
[2018-07-26] MEDS: OSELTAMIVIR 60 MG/10 ML ORAL SYRINGE PO SCH (20:40)
[2018-07-26] MEDS: METOPROLOL TARTRATE 25 MG TAB PO SCH (20:40)
[2018-07-26] MEDS: PHENYTOIN SODIUM EXTENDED 100 MG CAP PO SCH (20:41)
[2018-07-26] MEDS: VIT A,C & E-LUTEIN-MINERALS 1 EACH TAB PO SCH (20:42)
[2018-07-26] MEDS ORDERED: OSELTAMIVIR 75 MG CAP PO SCH (21:00)
[2018-07-27] MEDS: NITROGLYCERIN OINT 1 INCH/GM PACKET TOPICAL SCH (05:03)
[2018-07-27 07:10] LABS: Basophils % (A) 0 %; Eosinophils % (A) 0 %; HCT 36.8 % (34.0-46.0); HGB 11.7 gm/dL (11.4-16.0); Lymphocytes # (A) 0.9 k/uL (1.0-4.8); Lymphocytes % (A) 12 %; MCHC 31.7 g/dL (31.0-37.0); Mean Platelet Volume 6.9; Monocytes # (A) 0.6 k/uL (0-1.0); Monocytes % (A) 8 %; Neutrophils # (A) 5.8 k/uL (1.3-7.7); Neutrophils % (A) 77 %; Platelet Count 229 k/uL (150-450); RBC 3.76 m/uL (3.80-5.40); RDW 12.8 % (11.5-15.5); WBC 7.6 k/uL (3.8-10.6)
[2018-07-27 07:25] LABS: Cholesterol 142 mg/dL (<200); HDL Cholesterol 106 mg/dL (40-60); LDL Cholesterol,Calculated 26 mg/dL (0-99); Triglycerides 49 mg/dL (<150)
[2018-07-27] MEDS: CHOLECALCIFEROL 1,000 UNIT TAB PO SCH (08:26)
[2018-07-27] MEDS: VIT A,C & E-LUTEIN-MINERALS 1 EACH TAB PO SCH ×2 (08:27→21:20)
[2018-07-27] MEDS: METOPROLOL TARTRATE 25 MG TAB PO SCH ×2 (08:27→21:19)
[2018-07-27] MEDS ORDERED: ASPIRIN 325 MG TAB PO SCH (09:00)
[2018-07-27] MEDS: OSELTAMIVIR 60 MG/10 ML ORAL SYRINGE PO SCH ×2 (09:30→21:20)
[2018-07-27] MEDS: APIXABAN 5 MG TAB PO SCH ×2 (10:42→21:19)
[2018-07-27] MEDS: LEVOFLOXACIN 750MG-D5W PMX 750 MG in DEXTROSE/WATER 1 150ML.BAG IVPB SCH (10:42)
--- NOTE | 2018-07-27 13:39 | P.PN ---
Subjective Progress Note Date: 07/27/18 This is a 83-year-old female with no significant past cardiac history, has been having symptoms of cough, shortness of breath and flulike symptoms for the last 3 to 4 days. Her also has similar problem. Patient was also feeling intermittent palpitations. She complained of some heaviness in the chest, which reminded her of for pneumonia that she had in the past. Patient was seen in the emergency room. She was found to have tachyarrhythmia which appears to be atypical fibrillation with rapid ventricular response. Patient converted back to sinus rhythm. She is being treated for influenza A and pneumonia. No history of previous atrial fibrillation. Most of hypertension, diabetes, prev ious myocardial infarction or strokes. We will going to initiate her on heparin drip and convert to oral anti-cognition therapy later on. We'll get an echocardiogram. Patient will initiate on beta blockers. Further recommendations depend upon the clinical course. 07/27/2018 Patient seen and examined this morning, overall she's feeling better. She does continue to have a cough. Remaining in normal sinus rhythm today. Heparin has been discontinued as well as aspirin patient has been initiated on Eliquis. Objective - Vital Signs Vital signs: Vital Signs Temp 98.7 F 07/27/18 11:10 Pulse 71 07/27/18 11:11 Resp 17 07/27/18 11:11 BP 105/59 07/27/18 11:10 Pulse Ox 95 07/27/18 11:10 Intake & Output 07/26/18 07/27/18 07/27/18 18:59 06:59 18:59 Intake Total 2380 10 800 Output Total 500 Balance 1880 10 800 Weight 66.1 kg Intake: IV 1220 10 20 Invasive Line 2 20 10 20 Levofloxacin 750Mg-D5w 150 Pmx 750 mg In Dextrose/ Water 1 150ml.bag @ 100 mls/hr IVPB Q24H [facility] Rx#: [id number] Sodium Chloride 0.9% 500 500 ml 500 ml @ 1000 mls/hr IV Q35M [facility] Rx#:[id number] Sodium Chloride 0.9% 500 500 ml 500 ml @ 999 mls/hr IV .Q31M ONE Rx#:[id number] cefTRIAXone 1 gm In 50 Sodium Chloride 0.9% 50 ml @ 100 mls/hr IVPB ONCE STA Rx#:[id number] Oral 1160 780 Output: Urine 500 Other: Voiding Method Toilet Toilet # Voids 1 1 - Exam GENERAL EXAM: Patient is alert and oriented and doesn't appear to be in any acute distress HEENT: Normocephalic. Normal reaction of pupils, equal size, normal range of extraocular motion. No erythema or exudates in the throat. NECK: No masses, no nuchal rigidity. CHEST: No chest wall deformity. LUNGS: Equal air entry with no crackles or wheeze. HEART: S1 and S2 normal with no audible mumurs or gallops. Regular rhythm, femorals equal on both sides.. ABDOMEN: No hepatosplenomegaly, normal bowel sounds, no guarding or rigidity. SKIN: No rashes CENTRAL NERVOUS SYSTEM: No focal deficits. EXTREMITIES: No cyanosis, clubbing or edema. - Labs CBC & Chem 7: 07/27/18 06:31 07/26/18 06:55 Labs: Abnormal Lab Results - Last 24 Hours (Table) 07/26/18 07/26/18 07/27/18 Range/Units 15:46 23:22 06:31 RBC 3.76 L (3.80-5.40) m/uL Lymphocytes # 0.8 L (1.0-4.8) k/uL APTT 53.7 H (22.0-30.0) sec HDL Cholesterol 106 H (40-60) mg/dL 07/27/18 Range/Units 06:31 RBC 3.76 L (3.80-5.40) m/uL Lymphocytes # 0.9 L (1.0-4.8) k/uL APTT (22.0-30.0) sec HDL Cholesterol (40-60) mg/dL Microbiology - Last 24 Hours (Table) 07/26/18 08:55 Urine Culture - Final Urine,Voided 07/26/18 07:43 Blood Culture - Preliminary Blood No Growth after 24 hours Assessment and Plan Plan: Assessment and plan #1 influenza A with pneumonia #2 paroxysmal atrial fibrillation remaining in normal sinus rhythm Plan We will review the echocardiogram with Doppler study. From our perspective, we'll discontinue the IV heparin and start the patient on Eliquis, discontinue aspirin. DNP note has been reviewed, I agree with a documented findings and plan of care. Patient was seen and examined.
--- NOTE | 2018-07-27 13:44 | P.PN ---
Subjective Patient says that she's feeling better per shortness of breath and cough are better. She did have fever last night No chest pain racing heart Objective - Vital Signs Vital signs: Vital Signs Temp 98.7 F 07/27/18 11:10 Pulse 71 07/27/18 11:11 Resp 17 07/27/18 11:11 BP 105/59 07/27/18 11:10 Pulse Ox 95 07/27/18 11:10 Intake & Output 07/26/18 07/27/18 07/27/18 18:59 06:59 18:59 Intake Total 2380 10 800 Output Total 500 Balance 1880 10 800 Weight 66.1 kg Intake: IV 1220 10 20 Invasive Line 2 20 10 20 Levofloxacin 750Mg-D5w 150 Pmx 750 mg In Dextrose/ Water 1 150ml.bag @ 100 mls/hr IVPB Q24H [facility] Rx#: [id number] Sodium Chloride 0.9% 500 500 ml 500 ml @ 1000 mls/hr IV Q35M [facility] Rx#:[id number] Sodium Chloride 0.9% 500 500 ml 500 ml @ 999 mls/hr IV .Q31M ONE Rx#:[id number] cefTRIAXone 1 gm In 50 Sodium Chloride 0.9% 50 ml @ 100 mls/hr IVPB ONCE STA Rx#:[id number] Oral 1160 780 Output: Urine 500 Other: Voiding Method Toilet Toilet # Voids 1 1 - Exam On exam, alert and oriented x3. HEENT: Conjunctivae normal. eyes normal. NECK: No JVD. No thyroid enlargement. No LNs CARDIOVASCULAR: S1-S2 positive Respiratory Brreath sounds diminished in the bases. No rhonchi or crackles. No bronchial breathing. ABDOMEN: Soft, nontender . No guarding. no masses palpable. No ascites, No hepatosplenomegaly.Bowel sounds heard. LEGS: No edema. no swelling NERVOUS SYSTEM: Cranial N 2-12 grossly normal. Moves all 4 limbs. No focal deficits. No sensory deficit. No signs of cerebellar dysfucntion. Skin: no ulcer no rash - Labs CBC & Chem 7: 07/27/18 06:31 07/26/18 06:55 Labs: Abnormal Lab Results - Last 24 Hours (Table) 07/26/18 07/26/18 07/27/18 Range/Units 15:46 23:22 06:31 RBC 3.76 L (3.80-5.40) m/uL Lymphocytes # 0.8 L (1.0-4.8) k/uL APTT 53.7 H (22.0-30.0) sec HDL Cholesterol 106 H (40-60) mg/dL 07/27/18 Range/Units 06:31 RBC 3.76 L (3.80-5.40) m/uL Lymphocytes # 0.9 L (1.0-4.8) k/uL APTT (22.0-30.0) sec HDL Cholesterol (40-60) mg/dL Microbiology - Last 24 Hours (Table) 07/26/18 08:55 Urine Culture - Final Urine,Voided 07/26/18 07:43 Blood Culture - Preliminary Blood No Growth after 24 hours Assessment and Plan Assessment: - Left lung pneumonia - Influenza A - SVT now in sinus tach - History of COPD and - History of seizures Plan - Continue Levaquin and Tamiflu - Patient was started on liquids by cardiology - Ray control as of now - Continue rest of the medications - If patient continues to do better and if no more fevers for 24 hours, Patient might be able to go home Time with Patient: Greater than 30
--- NOTE | 2018-07-27 17:41 | ECHOF ---
Referral Reason:SVT MEASUREMENTS -------- HEIGHT: 132.1 cm WEIGHT: 45.8 kg BP: RVIDd: 2.0 cm (< 3.3) IVSd: 0.7 cm (0.6 - 1.1) LVIDd: 3.9 cm (3.9 - 5.3) LVPWd: 0.9 cm (0.6 - 1.1) IVSs: 1.3 cm LVIDs: 2.6 cm LVPWs: 1.2 cm LA Diam: 4.6 cm (2.7 - 3.8) LAESV Index (A-L): 34.79 ml/m Ao Diam: 2.9 cm (2.0 - 3.7) AV Cusp: 1.8 cm (1.5 - 2.6) LA Diam: 3.8 cm (2.7 - 3.8) MV EXCURSION: 20.347 mm (> 18.000) MV EF SLOPE: 88 mm/s (70 - 150) EPSS: 0.5 cm MV E Christiano: 0.76 m/s MV DecT: 187 ms MV A Christiano: 0.92 m/s MV E/A Ratio: 0.82 RAP: 5.00 mmHg RVSP: 34.88 mmHg FINDINGS -------- Sinus rhythm. This was a technically good study. LV size, wall thickness and systolic function are normal, with an EF greater than 55%. The left yanci tricular size is normal. The right ventricle is normal in size. The left atrium is moderately dilated. LA is moderately dilated 34-39 ml/m2 The right atrial size is normal. The aortic valve is trileaflet, and appears structurally normal. No aortic stenosis or regurgitation. Mild mitral regurgitation is present. Mild tricuspid regurgitation present. There is mild pulmonary hypertension. The right ventricular systolic pressure, as measured by Doppler, is 34.88mmHg. Trace/mild (physiologic) pulmonic regurgitation. The aortic root size is normal. There is no pericardial effusion. CONCLUSIONS -------- 1. LV size, wall thickness and systolic function are normal, with an EF greater than 55%. 2. The left ventricular size is normal. 3. The right ventricle is normal in size. 4. The left atrium is moderately dilated. 5. LA is moderately dilated 34-39 ml/m2 6. The right atrial size is normal. 7. The aortic valve is trileaflet, and appears structurally normal. No aortic stenosis or regurgitati on. 8. Mild mitral regurgitation is present. 9. Mild tricuspid regurgitation present. 10. There is mild pulmonary hypertension. 11. The right ventricular systolic pressure, as measured by Doppler, is 34.88mmHg. 12. Trace/mild (physiologic) pulmonic regurgitation. 13. The aortic root size is normal. 14. There is no pericardial effusion. PAYROLL EXAMINER: Radha Enamorado RDCS
[2018-07-27] MEDS: PHENYTOIN SODIUM EXTENDED 100 MG CAP PO SCH (21:19)
[2018-07-28 06:18] LABS: Basophils % (A) 0 %; Eosinophils # (A) 0.1 k/uL (0-0.7); Eosinophils % (A) 1 %; HCT 37.2 % (34.0-46.0); HGB 12.4 gm/dL (11.4-16.0); Lymphocytes # (A) 1.8 k/uL (1.0-4.8); Lymphocytes % (A) 28 %; MCHC 33.2 g/dL (31.0-37.0); MCV 96.2 fL (80.0-100.0); Monocytes # (A) 0.4 k/uL (0-1.0); Monocytes % (A) 7 %; Neutrophils % (A) 63 %; Platelet Count 236 k/uL (150-450); RBC 3.86 m/uL (3.80-5.40); RDW 13.1 % (11.5-15.5); WBC 6.3 k/uL (3.8-10.6)
[2018-07-28] MEDS: METOPROLOL TARTRATE 25 MG TAB PO SCH (09:00)
[2018-07-28] MEDS: APIXABAN 5 MG TAB PO SCH (09:00)
[2018-07-28] MEDS: VIT A,C & E-LUTEIN-MINERALS 1 EACH TAB PO SCH (09:00)
[2018-07-28] MEDS: CHOLECALCIFEROL 1,000 UNIT TAB PO SCH (09:00)
[2018-07-28] MEDS: OSELTAMIVIR 60 MG/10 ML ORAL SYRINGE PO SCH (09:24)
[2018-07-28 11:36] VITALS: RESP 16
--- NOTE | 2018-07-28 12:26 | P.PN ---
Subjective Progress Note Date: 07/28/18 This is a 83-year-old female with no significant past cardiac history, has been having symptoms of cough, shortness of breath and flulike symptoms for the last 3 to 4 days. Her also has similar problem. Patient was also feeling intermittent palpitations. She complained of some heaviness in the chest, which reminded her of for pneumonia that she had in the past. Patient was seen in the emergency room. She was found to have tachyarrhythmia which appears to be atypical fibrillation with rapid ventricular response. Patient converted back to sinus rhythm. She is being treated for influenza A and pneumonia. No history of previous atrial fibrillation. Most of hypertension, diabetes, prev ious myocardial infarction or strokes. We will going to initiate her on heparin drip and convert to oral anti-cognition therapy later on. We'll get an echocardiogram. Patient will initiate on beta blockers. Further recommendations depend upon the clinical course. 07/27/2018 Patient seen and examined this morning, overall she's feeling better. She does continue to have a cough. Remaining in normal sinus rhythm today. Heparin has been discontinued as well as aspirin patient has been initiated on Eliquis. 07/28/2018 Patient seen and examined this morning, she underwent a CAT scan of the chest this morning. Remaining in normal sinus rhythm. Overall feeling well and eager to be discharged home. Objective - Vital Signs Vital signs: Vital Signs Temp 97.9 F 07/28/18 11:36 Pulse 67 07/28/18 11:36 Resp 16 07/28/18 11:36 BP 122/61 07/28/18 11:36 Pulse Ox 95 07/28/18 11:36 Intake & Output 07/27/18 07/28/18 07/28/18 18:59 06:59 18:59 Intake Total 1730 120 Balance 1730 120 Weight 46.8 kg Intake: IV 190 Invasive Line 1 10 Invasive Line 2 30 Levofloxacin 750Mg-D5w 150 Pmx 750 mg In Dextrose/ Water 1 150ml.bag @ 100 mls/hr IVPB Q24H [facility] Rx#: [id number] Oral 1540 120 Other: Voiding Method Toilet Toilet Toilet # Voids 2 1 # Bowel Movements 1 - Exam GENERAL EXAM: Patient is alert and oriented and doesn't appear to be in any acute distress HEENT: Normocephalic. Normal reaction of pupils, equal size, normal range of extraocular motion. No erythema or exudates in the throat. NECK: No masses, no nuchal rigidity. CHEST: No chest wall deformity. LUNGS: Equal air entry with no crackles or wheeze. HEART: S1 and S2 normal with no audible mumurs or gallops. Regular rhythm, femorals equal on both sides.. ABDOMEN: No hepatosplenomegaly, normal bowel sounds, no guarding or rigidity. SKIN: No rashes CENTRAL NERVOUS SYSTEM: No focal deficits. EXTREMITIES: No cyanosis, clubbing or edema. - Labs CBC & Chem 7: 07/28/18 05:51 07/26/18 06:55 Labs: Microbiology - Last 24 Hours (Table) 07/26/18 07:43 Blood Culture - Preliminary Blood No Growth after 48 hours 07/26/18 14:26 Blood Culture - Preliminary Blood No Growth after 24 hours 07/26/18 08:55 Urine Culture - Final Urine,Voided Assessment and Plan Plan: Assessment and plan #1 influenza A with pneumonia #2 paroxysmal atrial fibrillation remaining in normal sinus rhythm Plan EchoCardiogram with Doppler study revealed an ejection fraction of 55%. From our perspective patient may be able to be discharged home once cleared by primary. We will follow her now on an as-needed basis only, please don't hesitate to call if you have any questions at all. DNP note has been reviewed, I agree with a documented findings and plan of care. Patient was seen and examined.
--- NOTE | 2018-07-28 12:56 | CT ---
EXAMINATION TYPE: CT chest wo con DATE OF EXAM: 07/28/2018 COMPARISON: Radiographic 07/26/2018 HISTORY: 83-year-old female prominent hilum, possible nodule TECHNIQUE: Contiguous axial scanning of the chest without IV contrast. Coronal and sagittal reconstru ctions performed. CT DLP: 146.5 mGycm Automated exposure control for dose reduction was used. FINDINGS: Heart borderline enlarged without pericardial effusion. Mild coronary vessel calcifications. Ascending aorta normal caliber with normal variant direct takeoff of the left vertebral artery direct ly from the aortic arch. Ectatic lower descending thoracic aorta at 2.5 cm. Borderline sized mediastinal lymph nodes are demonstrated measuring up to 9 mm in the precarinal armando on. There may be a borderline enlarged 1 cm left paraesophageal lymph node just below the level of th e tobi, refer to axial image 29. There is volume loss with consolidation and bronchiectasis inferior lingula and medial basilar right middle lobe. Scattered tree-in-bud opacities are present nodular densities and additional patchy dens ities. Additional scattered tree-in-bud opacities throughout the upper and mid lungs. Follow-up is re commended to ensure stability or resolution of the nodular areas. No pleural effusion. Limited assessment of the upper abdomen to the lack of contrast. Bones: Mild multilevel degenerative disc disease in the thoracic spine. No osseous destructive proces s. IMPRESSION: 1. CONSOLIDATION AND VOLUME LOSS WITH BRONCHIECTASIS OF THE INFERIOR LINGULA AND BASILAR RIGHT MIDDLE LOBE. A FEW SCATTERED TREE-IN-BUD OPACITIES AND ADDITIONAL SCATTERED PATCHY AND NODULAR DENSITIES. C ORRELATE FOR ATYPICAL FUNGAL OR MYCOBACTERIAL INFECTIONS. CONSTELLATION OF FINDINGS CAN BE SEEN IN TH E SETTING OF INDOLENT CHEIKH INFECTION. 2. 3 - 6 MONTH FOLLOW-UP AFTER TREATMENT TO ENSURE STABILITY/RESOLUTION OF THE NODULAR DENSITIES.
[2018-07-28] MEDS ORDERED: LEVOFLOXACIN 750 MG TAB PO SCH (14:00)
[2018-07-28 15:38] VITALS: BP 130/68; PULSE 79; TEMP 98
--- NOTE | 2018-07-28 17:27 | P.CNPUL ---
History of Present Illness Consult date: 07/28/18 Requesting physician: Reid E Sheet Reason for consult: dyspnea, cough, abnormal CXR/CT Chief complaint: Influenza A pneumonia History of present illness: This 83-year-old white female patient of Dr. Evans, with past medical history of seizure disorder, patient is a former smoker, who presented to the emergency department on the 07/26/2018 with a 3 day history of coughing, severe headaches, and production which was greenish in color. Patient was also having some chest pressure and heaviness, and noticed that her heart was racing. Patient's was sick with a cough a few days prior. Patient came into the emergency department for further evaluation and was found to have SVT with a rate in the 140s BPM. Lab work did not show any significant leukocytosis, white blood cell count was 9.2, hemoglobin was 13.4, sodium was 139, potassium was 4.6, BUN was 42 and creatinine was 0.53, lactic acid was within normal limits at 1.4, influenza screen was positive for influenza A. Chest x-ray showed left mid lung patchy opacity specialist for an area of pneumonia. Is also some subtle nodular density in the right midlung and bilateral hilar prominence. Follow-up CT was recommended, which showed consolidation and volume loss with bronchiectasis of the inferior lingula and basilar right middle lobe. Showed a few scattered tree-in-bud opacities and additional scattered patchy and nodular densities, (suggestive for atypical fungal or mycobacterial infection. Patient has been treated with a combination of oral Tamiflu, and she was started on oral Levaquin by the attending physician, today's exam she is calm and comfortable, she is on room air, with a pulse ox of 95%, she is afebrile, no shortness of breath, no chest pain, no significant chest congestion, she is ambulating in the room, she is fully dressed, and she is getting very to be discharged home. Blood and urine cultures showed no growth. She has been in sinus rhythm, and cardiology has been following, he was started on oral anticoagulation the form of Eliquis. We are asked to see the patient in regards to influenza pneumonia, and finnding on the CT chest Review of Systems All systems: negative Constitutional: Denies chills, Denies fever Eyes: denies blurred vision, denies pain Ears, nose, mouth and throat: Denies headache, Denies sore throat Cardiovascular: Reports palpitations, Denies chest pain, Denies shortness of breath Respiratory: Reports cough with sputum, Reports dyspnea, Denies cough Gastrointestinal: Denies abdominal pain, Denies diarrhea, Denies nausea, Denies vomiting Genitourinary: Denies dysuria, Denies hematuria Musculoskeletal: Denies myalgias Integumentary: Denies pruritus, Denies rash Neurological: Denies numbness, Denies weakness Psychiatric: Denies anxiety, Denies depression Endocrine: Denies fatigue, Denies weight change Past Medical History Past Medical History: Cancer, Eye Disorder, Osteoarthritis (OA), Seizure Disorder Additional Past Medical History / Comment(s): 8501-0023 seizures, R eye macular degeneration, told she has "alittle irregular heartbeat at times.", arthritis in her back, skin cancer with removal. History of Any Multi-Drug Resistant Organisms: None Reported Past Surgical History: Back Surgery, Breast Surgery, Section, Hysterectomy, Orthopedic Surgery Additional Past Surgical History / Comment(s): Brain biopsy during times of seizures, R submandibular ductoplasty, R shoulder rotator cuff surgery, low back surgery, cyst removed from left breast, colonoscopy. Past Anesthesia/Blood Transfusion Reactions: No Reported Reaction Additional Past Anesthesia/Blood Transfusion Reaction / Comment(s): Pt has never received blood. Smoking Status: Former smoker - Past Family History Father Family Medical History: COPD Additional Family Medical History / Comment(s): Father was a smoker and had emphysema. Mother Family Medical History: No Reported History Additional Family Medical History / Comment(s): Mother was healthy and lived to be 85yrs old. Brother(s) Family Medical History: Cancer Additional Family Medical History / Comment(s): Brother had esophageal cancer. Medications and Allergies Home Medications Medication Instructions Recorded Confirmed Type Phenytoin Sodium Extended 300 mg PO HS 09/13/15 07/26/18 History [Dilantin] Vit C/E/Zn/Coppr/Lutein/Zeaxan 1 cap PO BID 11/18/16 07/26/18 History [Preservision Areds 2 Softgel] Cholecalciferol [Vitamin D3] 1,000 unit PO DAILY 07/26/18 07/26/18 History Albuterol Inhaler [Ventolin Hfa 1 - 2 puff INHALATION RT-Q6H PRN 07/28/18 Rx Inhaler] #1 inhaler Apixaban [Eliquis] 5 mg PO BID #60 tab 07/28/18 Rx Levofloxacin [Levaquin] 750 mg PO 1400 7 Days #7 tab 07/28/18 Rx Metoprolol Tartrate [Lopressor] 25 mg PO BID #60 tab 07/28/18 Rx Nitroglycerin Sl Tabs [Nitrostat] 0.4 mg SUBLINGUAL Q5M PRN #20 tab 07/28/18 Rx Oseltamivir 6Mg/ml Oral Susp 30 mg PO Q12HR 3 Days #5 oral.syrg 07/28/18 Rx [Tamiflu] Allergies Allergy/AdvReac Type Severity Reaction Status Date / Time Penicillins Allergy Rash/Hives Verified 07/26/18 08:16 iodine AdvReac "passed Verified 07/26/18 08:16 out" Physical Exam Vitals: Vital Signs Temp Pulse Resp BP BP Pulse Ox 07/28/18 15:37 98 F 79 16 130/68 95 07/28/18 11:36 97.9 F 67 16 122/61 95 07/28/18 08:30 98.6 F 87 20 119/75 94 L 07/28/18 04:00 99.0 F 77 15 117/55 94 L 07/28/18 00:11 99.3 F 74 16 115/65 93 L 07/27/18 21:17 99.0 F 92 15 137/63 96 Intake and Output 07/28/18 07/28/18 07/28/18 06:59 14:59 22:59 Intake Total 238 Balance 238 Intake: Oral 238 Other: Voiding Method Toilet Toilet Toilet # Voids 2 1 1 # Bowel Movements 1 Weight 46.8 kg GENERAL EXAM: Alert, pleasant, 83-year-old white female, on room air, ambulating in the room, comfortable in no apparent distress. HEAD: Normocephalic/atraumatic. EYES: Normal reaction of pupils, equal size. Conjunctiva pink, sclera white. NOSE: Clear with pink turbinates. THROAT: No erythema or exudates. NECK: No masses, no JVD, no thyroid enlargement, no adenopathy. CHEST: No chest wall deformity. Symmetrical expansion. LUNGS: Equal air entry with no crackles, wheeze, rhonchi or dullness. CVS: Regular rate and rhythm, normal S1 and S2, no gallops, no murmurs, no rubs ABDOMEN: Soft, nontender. No hepatosplenomegaly, normal bowel sounds, no guarding or rigidity. EXTREMITIES: No clubbing, no edema, no cyanosis, 2+ pulses and upper and lower extremities. MUSCULOSKELETAL: Muscle strength and tone normal. SPINE: No scoliosis or deformity SKIN: No rashes CENTRAL NERVOUS SYSTEM: Alert and oriented -3. No focal deficits, tone is normal in all 4 extremities. PSYCHIATRIC: Alert and oriented -3. Appropriate affect. Intact judgment and insight. Results - Laboratory Findings CBC and BMP: 07/28/18 05:51 07/26/18 06:55 PT/INR, D-dimer PT 11.0 sec (9.0-12.0) 07/26/18 15:46 INR 1.0 (<1.2) 07/26/18 15:46 Abnormal lab findings: Abnormal Labs 07/26/18 07/26/18 07/26/18 06:51 06:55 06:55 RBC Lymphocytes # 0.9 L APTT Glucose 116 H HDL Cholesterol Influenza Type A RNA Detected H 07/26/18 07/26/18 07/27/18 15:46 23:22 06:31 RBC 3.76 L Lymphocytes # 0.8 L APTT 53.7 H Glucose HDL Cholesterol 106 H Influenza Type A RNA 07/27/18 06:31 RBC 3.76 L Lymphocytes # 0.9 L APTT Glucose HDL Cholesterol Influenza Type A RNA - Diagnostic Findings Chest x-ray: report reviewed, image reviewed CT scan - chest: report reviewed, image reviewed Additional studies: EKG reviewed Assessment and Plan Plan: Assessment: #1. Influenza A pneumonia, influenza screen was positive, and chest x-ray showed left middle lobe infiltrate on initial chest x-ray, and nonspecific nodular opacity seen bilaterally, follow-up CT chest today showed consolidation and volume loss with bronchiectasis of the inferior lingula and basilar right middle lobe. There were also findings suggestive of atypical fungal or mycobacterial infections a few scattered tree-in-bud opacities and nodular densities. Will be followed on an outpatient basis, patient will be treated with Levaquin, and seen on outpatient basis for follow-up #2. SVT present on presentation, in sinus rhythm, patient has been evaluated by cardiology #3. History of paroxysmal A. fib, on chronic anticoagulation #4. History of COPD, not oxygen dependent at baseline, #5. History of seizure disorder #6. Mild pulmonary hypertension, echocardiogram showed right sided pressure of 34.8 mmHg. Plan: Patient has been treated with a combination of Tamiflu and Levaquin, chest x-ray and CT chest has been reviewed with Dr. Velazquez, showed some nonspecific nodular opacities bilaterally, and infiltrates bilaterally, and changes suggestive of atypical or mycobacterial infection. Medical patient is improving, no fever or chills in the last 48 hours, vital signs are stable, she is on room air, tolerating ambulation, she has appointment set up with Dr. Bryant and follow-up, she is back in sinus rhythm, heart rate is better controlled, she is on chronic anticoagulation, no acute events overnight. From pulmonary perspective patient is stable for discharge home later course of Tamiflu and Levaquin, she'll see Dr. Bryant in follow-up. I performed a history & physical examination of the patient and discussed their management with my nurse practitioner, Ginna Kent. I reviewed the nurse practitioner's note and agree with the documented findings and plan of care. Lung sounds are positive for clear. The findings and the impression was discussed with the patient. I attest to the documentation by the nurse practitioner. Time with Patient: Greater than 30
--- NOTE | 2018-07-31 22:24 | P.DS ---
Providers Date of admission: 07/26/18 08:48 Attending physician: Lindsey Lopez Consults: 07/26/18 08:46 Consult Physician Urgent Consulting Provider: [facility] Consult Reason/Comments: Chest pain, SVT Do you want consulting provider notified?: Yes Primary care physician: Kenna Diaz Hospital Course: Diagnoses: - Left lung pneumonia - Influenza A - paroxysmal atrial fibrillation - abn CT of the chest (bronchiectasis and a few scattered tree-in-bud opacities and additional scattered patchy and nodular densities suspicious for atypical fungal or mycobacterial infection - History of COPD and - History of seizures Hospital course This is a pleasant 83 years old female with past medical history of seizure disorder. Who presents because of worsening cough and green phlegm of 2 days' duration. Patient denies to me dyspnea or chest pain. Patient influenza a test came back positive and she was treated with Tamiflu and Levaquin. Chest x-ray showing bilateral hilar prominence with left midlung opacity suspicious for pneumonia, COPD changes. And possible right mid lung nodularity. Radiologist recommended CAT scan of the chest which -was done: consolidation and volume loss with bronchiectasis of the inferior lingula and basilar right middle lobe and a few scattered tree-in-bud opacities and additional scattered patchy and nodular densities, (suggestive for atypical fungal or mycobacterial infection). bacause of abn CT, pulmonary team has been consulted , i discussed the case with them and they recommended 7 more days of oral levaquin , a follow up appointment has been set for the pt for follow up. and she agrees with it. With the treatment her cough and phlegm are significantly improved, patient today still me she is back to her baseline and she is ready to go home. Patient denies chest pain, no dyspnea. cardiology evaluated pt for Paroxysmal a fib, recommended to start pt on eliquis, and beta srinivasa. on the day of discharge pt was provided with one syl h supply coupon of Eliquis however she did not want to make Eliquis because she was afraid from side effects. i explained to the pt risk ,benefits and alternatives. she was still not sure if she will take the Eliquis , however i provided her with the script for Eliquis and if she decided not to take Eliquis then another script for baby aspirin and I instructed her to take only one either asa or eliquis and she verbalized understanding and acceptance. son was also present during the whole encounter upon pt request and he took note of these instructions. also i encourage pt to follow up with her pcp and patient support representative as per appointment made for her with these two and she agrees to f/u Patient problems and management plan were discussed with patient in details and she verbalized understanding and acceptance. Risk of lung cancer are explained for the patient for her hilar prominence and possible nodule. Patient was instructed to follow up with pulmonology services, patient verbalized unde rstanding and she agrees and asked medical staff to make pulmonary appointment to which she agrees to go on follow-up with. Patient was found stable and can be discharged home however she needs follow-up as an outpatient. Patient agrees with the appointments and timing. Patient stated that she will make her own appointment with patient support representative, which instructed to follow up with him in 7-10 days. Gen: patient is a AAOx3, no distress CVS: S1-S2, RRR, no murmur Lungs: B/L CTA, no wheezing Abdomen: soft, no distention, no tenderness, positive bowel sounds Extremity: no leg edema or induration Time spent more than 35 minutes Plan - Discharge Summary Discharge Rx Participant: No New Discharge Prescriptions: New Apixaban [Eliquis] 5 mg PO BID #60 tab Levofloxacin [Levaquin] 750 mg PO 1400 7 Days #7 tab Metoprolol Tartrate [Lopressor] 25 mg PO BID #60 tab Nitroglycerin Sl Tabs [Nitrostat] 0.4 mg SUBLINGUAL Q5M PRN #20 tab PRN Reason: Chest Pain Oseltamivir 6Mg/ml Oral Susp [Tamiflu] 30 mg PO Q12HR 3 Days #5 oral.syrg Albuterol Inhaler [Ventolin Hfa Inhaler] 1 - 2 puff INHALATION RT-Q6H PRN #1 inhaler PRN Reason: Shortness Of Breath Or Wheezing Aspirin 81 mg PO DAILY #30 chewable Continue Phenytoin Sodium Extended [Dilantin] 300 mg PO HS Vit C/E/Zn/Coppr/Lutein/Zeaxan [Preservision Areds 2 Softgel] 1 cap PO BID Cholecalciferol [Vitamin D3] 1,000 unit PO DAILY Discontinued Meloxicam [Mobic] 15 mg PO Q48H Discharge Medication List Phenytoin Sodium Extended [Dilantin] 300 mg PO HS 09/13/15 [History] Vit C/E/Zn/Coppr/Lutein/Zeaxan [Preservision Areds 2 Softgel] 1 cap PO BID 11/18/16 [History] Cholecalciferol [Vitamin D3] 1,000 unit PO DAILY 07/26/18 [History] Albuterol Inhaler [Ventolin Hfa Inhaler] 1 - 2 puff INHALATION RT-Q6H PRN #1 inhaler 07/28/18 [Rx] Apixaban [Eliquis] 5 mg PO BID #60 tab 07/28/18 [Rx] Aspirin 81 mg PO DAILY #30 chewable 07/28/18 [Rx] Levofloxacin [Levaquin] 750 mg PO 1400 7 Days #7 tab 07/28/18 [Rx] Metoprolol Tartrate [Lopressor] 25 mg PO BID #60 tab 07/28/18 [Rx] Nitroglycerin Sl Tabs [Nitrostat] 0.4 mg SUBLINGUAL Q5M PRN #20 tab 07/28/18 [Rx] Oseltamivir 6Mg/ml Oral Susp [Tamiflu] 30 mg PO Q12HR 3 Days #5 oral.syrg 07/28/18 [Rx] Follow up Appointment(s)/Referral(s): Kenna Diaz DO [Primary Care Provider] - 08/02/18 2:40 pm (Wednesday) Lizandro Bryant DO [Doctor of Osteopathic Medicine] - 08/16/18 1:30 pm (Pulmonary - please arrive 15 minutes prior to appointment to complete new patient information. Follow up for CT scan of your lungs- lung nodule and prominant hilum.) Devi Gallardo MD [STAFF PHYSICIAN] - 08/10/18 3:00 pm (At [facility] office: [address] [place] [address] Samples of eliquis set aside for you at your appointment with Dr. Gallardo.) Patient Instructions/Handouts: A-fib (Atrial Fibrillation) (DC), Heart Healthy Diet (DC), Influenza (DC), Safe Use of Anticoagulants (DC) Activity/Diet/Wound Care/Special Instructions: Cardiac diet Activity is limited till you see your doctor use either baby aspirin or Eliquis for your atrial fibrillation and follow up with your Primary care doctor and patient support representative Discharge Disposition: HOME SELF-CARE
== END 2018-07-28 18:01 | disposition home or self-care (01) ==
LOC: EC 06:21 → 3SCARD 08:48
PROVIDERS: ADMIT Hospitalist; ATTEND Hospitalist
DX: J10.00 Influenza due to other identified influenza virus with unspecified type of pneumonia (principal); J44.0 Chronic obstructive pulmonary disease with (acute) lower respiratory infection; I48.0 Paroxysmal atrial fibrillation; R07.89 Other chest pain; I47.1 Supraventricular tachycardia; I27.20 Pulmonary hypertension, unspecified; M46.90 Unspecified inflammatory spondylopathy, site unspecified; H35.30 Unspecified macular degeneration; R91.8 Other nonspecific abnormal finding of lung field; G40.909 Epilepsy, unspecified, not intractable, without status epilepticus; H57.9 Unspecified disorder of eye and adnexa; M19.90 Unspecified osteoarthritis, unspecified site; Z79.01 Long term (current) use of anticoagulants; Z79.1 Long term (current) use of non-steroidal anti-inflammatories (NSAID); Z79.899 Other long term (current) drug therapy; Z88.0 Allergy status to penicillin; Z91.048 Other nonmedicinal substance allergy status; Z87.891 Personal history of nicotine dependence; Z90.710 Acquired absence of both cervix and uterus; Z85.828 Personal history of other malignant neoplasm of skin; Z82.5 Family history of asthma and other chronic lower respiratory diseases; Z80.0 Family history of malignant neoplasm of digestive organs; Z81.2 Family history of tobacco abuse and dependence
CPT/HCPCS: 96376; 96365 ×2; 96366 ×2; 96367; 96361; 99284; 36415; 93005; 93306; 80061; 80053; 83605; 84484; 85025 ×3; 85610; 85730; 81003; 87040; 87086; 87502; 71046; 71250; G0378 ×3; J1644 ×2; J0696; J1956 ×2

== ENCOUNTER → 2019-05-31 | Outpatient (CLI) | payer MEDICARE, BC ==
--- NOTE | 2019-05-31 17:05 | BD ---
EXAMINATION TYPE: Axial Bone Density DATE OF EXAM: 05/31/2019 COMPARISON: 2015 CLINICAL HISTORY: Height: 59.25 Weight: 94 FRAX RISK QUESTIONS: Alcohol (3 or more units per day): no Family History (Parent hip fracture): no Glucocorticoids (More than 3mos): uses an inhaler-unsure what is in it (Ex: prednisone, prednisolone, methylprednisolone, dexamethasone, and hydrocortisone). History of Fracture in Adulthood: no Secondary Osteoporosis: 1. Type 1 Diabetes: no 2. Hyperthyroidism: no 3. Menopause before 45: yes, 44 4. Malnutrition: unsure 5. Chronic liver disease: no Rheumatoid Arthritis: no Current Tobacco Use: no RISK FACTORS HISTORY OF: Surgery to Spine: yes When: 2008 removal of a bone fragment Family History of Osteoporosis: mother had osteopenia Active: somewhat Diet low in dairy products/other sources of calcium: no Postmenopausal woman: yes Take estrogen and/or progesterone medications: not now How long: age [age] Lost more than 2 inches in height since high school: yes Frequent falls: legs not always steady Poor Health: frail Hyperparathyroidism: no Adrenal Insufficiency: no MEDICATIONS: Prednisone or other steroids: inhaler, patient takes several puffs in the morning How Long: a couple of years Thyroid Medications: no Osteoporosis Medications: not now Which medication: Fosamax How Long: about 10 years Additional Medications: Dilantin , metoprolol, Eliquis, Vitamin D Additional History EXAM MEASUREMENTS: Bone mineral densitometry was performed using the [employer] System. Bone mineral density as measured about the Lumbar spine is: ----- L1-L4(G/cm2): 1.125 T Score Values are as follows: ----- L2: -1.5 ----- L3: 0.1 ----- L4: 0.5 ----- L1-L4: -0.5 Bone mineral density has: Increased 4.4% since study of: 04/07/2013 (back not scanned in 2014) Bone mineral density about the R hip (g/cm2): 0.809 Bone mineral density about the L hip (g/cm2): 0.790 T Score values are as follows: -----R Neck: -1.7 -----L Neck: -1.8 -----R Total: -1.6 -----L Total: -1.5 Bone mineral density has: Decreased -3.0% since study of: 04/25/2015 IMPRESSION: Osteopenia (T Score between -2.5 and -1). There is slightly increased risk of fracture and the patient may be considered for treatment. Re-Screen 2-5 years. NOTE: T-SCORE=SD OF THE YOUNG ADULT MEAN.
== END | disposition home or self-care (01) ==
LOC: RADBDWWP 10:25
PROVIDERS: ATTEND Family Medicine
DX: M85.89 Other specified disorders of bone density and structure, multiple sites (principal); Z78.0 Asymptomatic menopausal state
CPT/HCPCS: 77080

== ENCOUNTER 2021-01-19 08:20 | Inpatient (IN) | payer MEDICARE, BC ==
[2021-01-19] MEDS ORDERED: ONDANSETRON ODT 4 MG TAB PO STA (08:43)
[2021-01-19] MEDS ORDERED: HYDROmorphone 0.5 MG/0.5 ML SYRINGE IM STA (08:43)
--- NOTE | 2021-01-19 08:54 | ED ---
General Adult HPI - General Source: patient, RN notes reviewed Mode of arrival: wheelchair Limitations: no limitations <Sherman Griffin - Last Filed: 01/19/21 11:14> <Chelsea Franco - Last Filed: 01/25/21 14:52> - General Chief complaint: Fall Stated complaint: Fall, R hip pain Time Seen by Provider: 01/19/21 08:27 - History of Present Illness Initial comments: 86-year-old female with a past medical history of seizures, brain tumor, eye disorder presents to the emergency room for fall. Patient states she was pivoting in her bathroom to get a shower and fell on the right hip. States she cannot bear weight on the right hip but is able to bend the right hip. States she was able to crawl on her hands and knees to the phone to call her daughter. Patient did not hit her head but does take blood thinners, Eliquis. Denies any other complaints.Patient has no other complaints at this time including shortnes s of breath, chest pain, abdominal pain, nausea or vomiting, headache, or visual changes. (Sherman Griffin) - Related Data Home Medications Medication Instructions Recorded Confirmed Phenytoin Sodium Extended 300 mg PO HS 09/13/15 01/19/21 [Dilantin] Vit C/E/Zn/Coppr/Lutein/Zeaxan 1 cap PO BID 11/18/16 01/19/21 [Preservision Areds 2 Softgel] Cholecalciferol [Vitamin D3 (25 1,000 unit PO DAILY 07/26/18 01/19/21 Mcg = 1000 Iu)] FLUoxetine HCL [PROzac] 10 mg PO DAILY 01/19/21 01/19/21 Meclizine [Antivert] 25 mg PO DAILY PRN 01/19/21 01/19/21 Previous Rx's Medication Instructions Recorded Apixaban [Eliquis] 5 mg PO BID #60 tab 07/28/18 Metoprolol Tartrate [Lopressor] 25 mg PO BID #60 tab 07/28/18 Nitroglycerin Sl Tabs [Nitrostat] 0.4 mg SUBLINGUAL Q5M PRN #20 tab 07/28/18 Acetaminophen Tab [Tylenol] 650 mg PO Q6HR PRN tab 01/21/21 Pantoprazole [Protonix] 40 mg PO AC-[id number] 01/21/21 traMADol HCl [Ultram] 50 mg PO TID 3 Days #12 tab 01/21/21 Allergies Allergy/AdvReac Type Severity Reaction Status Date / Time Penicillins Allergy Rash/Hives Verified 01/19/21 11:19 codeine AdvReac Nausea & Verified 01/19/21 11:19 Vomiting iodine AdvReac "passed Verified 01/19/21 11:19 out" Review of Systems ROS Other: All systems not noted in ROS Statement are negative. <Sherman Griffin P - Last Filed: 01/19/21 11:14> ROS Other: All systems not noted in ROS Statement are negative. <Chelsea Franco - Last Filed: 01/25/21 14:52> ROS Statement: Those systems with pertinent positive or pertinent negative responses have been documented in the HPI. Past Medical History Past Medical History: Cancer, Eye Disorder, Osteoarthritis (OA), Seizure Disorder Additional Past Medical History / Comment(s): [id number] seizures, R eye macular degeneration, told she has "alittle irregular heartbeat at times.", arthritis in her back, skin cancer with removal. History of Any Multi-Drug Resistant Organisms: None Reported Past Surgical History: Back Surgery, Breast Surgery, Section, Hysterectomy, Orthopedic Surgery Additional Past Surgical History / Comment(s): Brain biopsy during times of seizures, R submandibular ductoplasty, R shoulder rotator cuff surgery, low back surgery, cyst removed from left breast, colonoscopy. Past Anesthesia/Blood Transfusion Reactions: No Reported Reaction Additional Past Anesthesia/Blood Transfusion Reaction / Comment(s): Pt has never received blood. Past Psychological History: No Psychological Hx Reported Past Alcohol Use History: Daily Past Drug Use History: None Reported - Past Family History Father Family Medical History: COPD Additional Family Medical History / Comment(s): Father was a smoker and had emphysema. Mother Family Medical History: No Reported History Additional Family Medical History / Comment(s): Mother was healthy and lived to be 85yrs old. Brother(s) Family Medical History: Cancer Additional Family Medical History / Comment(s): Brother had esophageal cancer. <Sherman Griffin P - Last Filed: 01/19/21 11:14> General Exam Limitations: no limitations General appearance: alert, in no apparent distress Head exam: Present: atraumatic Eye exam: Present: normal appearance, PERRL, EOMI. Absent: scleral icterus, conjunctival injection ENT exam: Present: normal exam, mucous membranes moist Neck exam: Present: normal inspection, full ROM. Absent: tenderness Respiratory exam: Present: normal lung sounds bilaterally. Absent: respiratory distress, wheezes Cardiovascular Exam: Present: regular rate, normal rhythm, normal heart sounds GI/Abdominal exam: Present: soft, normal bowel sounds. Absent: distended, tenderness Extremities exam: Present: tenderness (Mild lateral hip tenderness.), normal capillary refill (cap refill less than 2 seconds, DP pulse 2+ right lower extremity.), other (Sensation intact right lower extremity.). Absent: full ROM (Flexion to 90 of the right hip, extension to neutral position.) <Sherman Griffin - Last Filed: 01/19/21 11:14> Course Vital Signs 01/19/21 01/19/21 01/19/21 08: 10:25 11:47 Temperature 98.5 F Pulse Rate 66 74 70 Respiratory 16 18 18 Rate Blood Pressure 129/62 113/63 113/70 O2 Sat by Pulse 95 95 94 L Oximetry Medical Decision Making <Sherman Griffin - Last Filed: 01/19/21 11:14> - Lab Data Result diagrams: 01/20/21 04:37 01/19/21 21:24 <Chelsea Franco - Last Filed: 01/25/21 14:52> - Medical Decision Making 86-year-old female presents to the emergency room for a chief complaint of right hip pain. Patient fell today. She is on blood thinners. She did not hit her head however being on blood thinners CT was obtained which showed no acute cranial hemorrhage mass effect or midline shift. There are postop changes and findings along the sphenoid wing described. Patient states she has had tumor in her brain since the 80s and she does not want anything done with it. X-ray of the hip and pelvis were obtained which showed a fracture involving the superior and inferior pubic ramus on the right. CT pelvis without contrast shows pubic ramus and bilateral sacral alar fractures on the right. Patient is unable to ambulate. At this time he discussed the case with Igor from orthopedics does accept admission to Dr. Goodmanson. medicine will be consulted. Laboratory evaluation was added for the floor. (Sherman Griffin) I was available for consultation in the emergency department. The history and physical exam were done by the midlevel provider. I was consulted for this patients care. I reviewed the case with the midlevel provider and based on their presentation of the patient, I agree with the assessment, medical decision making and plan of care as documented. Chart was dictated using [employer] dictation software. Attempts were made to correct any dictation errors however some typographical errors may persist. Patient was seen during a national state of emergency due to the Covid-19 pandemic. (Chelsea Franco) - Lab Data Lab Results 01/19/21 01/19/21 Range/Units 11:19 11:19 WBC 10.8 H (3.8-10.6) k/uL RBC 3.91 (3.80-5.40) m/uL Hgb 13.1 (11.4-16.0) gm/dL Hct 39.1 (34.0-46.0) % MCV 99.9 (80.0-100.0) fL MCH 33.4 (25.0-35.0) pg MCHC 33.5 (31.0-37.0) g/dL RDW 13.7 (11.5-15.5) % Plt Count 235 (150-450) k/uL MPV 8.0 Neutrophils % 78 % Lymphocytes % 15 % Monocytes % 4 % Eosinophils % 2 % Basophils % 1 % Neutrophils # 8.5 H (1.3-7.7) k/uL Lymphocytes # 1.7 (1.0-4.8) k/uL Monocytes # 0.4 (0-1.0) k/uL Eosinophils # 0.2 (0-0.7) k/uL Basophils # 0.1 (0-0.2) k/uL Hypochromasia Slight Macrocytosis Slight Sodium 134 L (137-145) mmol/L Potassium 4.2 (3.5-5.1) mmol/L Chloride 102 (98-107) mmol/L Carbon Dioxide 24 (22-30) mmol/L Anion Gap 8 mmol/L BUN 18 H (7-17) mg/dL Creatinine 0.49 L (0.52-1.04) mg/dL Est GFR (CKD-EPI)AfAm >90 (>60 ml/min/1.73 sqM) Est GFR (CKD-EPI)NonAf 90 (>60 ml/min/1.73 sqM) Glucose 114 H (74-99) mg/dL Calcium 9.5 (8.4-10.2) mg/dL Total Bilirubin 0.6 (0.2-1.3) mg/dL AST 45 H (14-36) U/L ALT 45 H (4-34) U/L Alkaline Phosphatase 77 (38-126) U/L Total Protein 6.9 (6.3-8.2) g/dL Albumin 4.0 (3.5-5.0) g/dL Disposition Is patient prescribed a controlled substance at d/c from ED?: No Time of Disposition: 11:15 <Sherman Griffin P - Last Filed: 01/19/21 11:14> <Chelsea Franco - Last Filed: 01/25/21 14:52> Clinical Impression: Inferior pubic ramus fracture, Fracture of superior pubic ramus, Sacral fract ure, closed Disposition: ADMITTED IP TO THIS HOSP Condition: Stable
--- NOTE | 2021-01-19 09:39 | XR ---
EXAMINATION TYPE: XR Hip RT and AP Pelvis DATE OF EXAM: 01/19/2021 COMPARISON: NONE HISTORY: Trauma and pain TECHNIQUE: A single AP view of the pelvis is obtained. Two views of the right hip are obtained. FINDINGS: There is superior pubic ramus, inferior pubic ramus fracture on the right. The hip and sa croiliac joints appear symmetric and are remarkable for osteopenia arthritic change. The overlying s oft tissue appears unremarkable. Probable vascular calcifications within the pelvis. Degenerative dis c change in the visualized spine. There is a spinal curvature. There are calcifications overlying the right L4 transverse process which are indeterminate measuring approximately 16 mm each, too calcific ations are suspected Two views of right hip show no acute fracture or dislocation. No focal lytic or sclerotic lesion see n in the proximal right femur. The overlying soft tissue is unremarkable. Osteoarthritic changes ar e present within the hips, there is joint space loss and marginal spurring bilaterally. IMPRESSION: There is fracture involving the superior and inferior pubic ramus on the right. Osteoart hritis within the hips. Degenerative disc disease, indeterminate calcifications.
--- NOTE | 2021-01-19 10:32 | CT ---
EXAMINATION TYPE: CT brain cspine wo con DATE OF EXAM: 01/19/2021 COMPARISON: HISTORY: fall, no head or neck complaints CT DLP: 1184.1 mGycm Automated exposure control for dose reduction was used. TECHNIQUE: CT scan of the head and cervical spine are performed without contrast. FINDINGS: There is no acute intracranial hemorrhage, mass effect, or midline shift identified. Per iventricular white matter shows low attenuation, there is encephalomalacia involving the right fronta l lobe with associated craniotomy present at this level, some periventricular scattered punctate calc ifications are also present, basal ganglia calcifications noted. The level of the sphenoid wing on th e left there is a bony excrescence present measuring approximately 19 mm in transverse dimension by 8 mm in cephalad to caudal dimension by 2 cm in AP dimension, findings could be related to a calcified meningioma, there is local mass effect. Cortical atrophy is present. The globes are intact and the v isualized sinuses are clear. Cervical spine is visualized in its entirety from C1 through upper thoracic levels and demonstrates n ear-anatomic alignment without evidence of acute fracture or dislocation. There is anterolisthesis g rade 1 C4-5, retrolisthesiPrevertebral multilevel spondylosis, loss of disc height is present at C4-5 and C5-6 and C6-7, soft tissue appears within normal limits. The C1-C2 articulation is unremarkable . There is multilevel facet arthropathy. There is a spinal curvature, multilevel foraminal encroachm ent. 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 There is no acute fracture or dislocation evident in the cervical spine. 2. No acute intracranial hemorrhage, mass effect, or midline shift is seen. Postop changes, findings along the sphenoid wing is described, MRI or comparison to prior exam is available may be of benefit as indicated.
--- NOTE | 2021-01-19 10:40 | CT ---
EXAMINATION TYPE: CT pelvis wo con DATE OF EXAM: 01/19/2021 COMPARISON: Plain film same date HISTORY: right hip pain, pelvic fractures CT DLP: 197.5 mGycm Automated exposure control for dose reduction was used. FINDINGS: Comminuted superior ramus fracture on the right, minimally displaced inferior pubic ramus fracture on the right are noted as previously described on plain film. Some local soft tissue swelling likely re presents local hematoma or ecchymosis, there is some mass effect on the aorta stented bladder Osteoar thritic changes are present within the hips. There is degenerative disc disease within the visualized spine, facet arthropathy. Hypertrophic change present at the sacroiliac joints. There is a nondisplaced stellate fracture throu gh the right sacral ala, coronal image 44 with a lucency also present at the inferior margin of the s acral ala on the right. Nondisplaced fracture also present in the superior aspect of the left sacral ala, coronal image #56. The calcifications seen in the paraspinal location representing gallstones. IMPRESSION: PUBIC RAMUS AND BILATERAL SACRAL ALAR FRACTURES ON THE RIGHT.
[2021-01-19] MEDS ORDERED: HYDROmorphone 0.5 MG/0.5 ML SYRINGE IVP STA (11:10)
[2021-01-19] MEDS ORDERED: ONDANSETRON 4 MG/2 ML VIAL IVP STA (11:10)
[2021-01-19] MEDS ORDERED: NALOXONE 0.4 MG/ML 1 ML VIAL IV PRN (11:15)
[2021-01-19] MEDS ORDERED: ONDANSETRON 4 MG/2 ML VIAL IVP PRN (11:15)
[2021-01-19] MEDS ORDERED: MORPHINE SULFATE 4 MG/ML SYRINGE IV PRN (11:15)
[2021-01-19 11:41] LABS: Basophils # (A) 0.1 k/uL (0-0.2); Basophils % (A) 1 %; Eosinophils # (A) 0.2 k/uL (0-0.7); Eosinophils % (A) 2 %; HCT 39.1 % (34.0-46.0); HGB 13.1 gm/dL (11.4-16.0); Hypochromasia Slight; Lymphocytes # (A) 1.7 k/uL (1.0-4.8); Lymphocytes % (A) 15 %; MCH 33.4 pg (25.0-35.0); MCHC 33.5 g/dL (31.0-37.0); MCV 99.9 fL (80.0-100.0); Macrocytosis Slight; Monocytes # (A) 0.4 k/uL (0-1.0); Monocytes % (A) 4 %; Neutrophils # (A) 8.5 k/uL (1.3-7.7); Neutrophils % (A) 78 %; Platelet Count 235 k/uL (150-450); RBC 3.91 m/uL (3.80-5.40); RDW 13.7 % (11.5-15.5); WBC 10.8 k/uL (3.8-10.6)
[2021-01-19 11:58] LABS: ALT 45 U/L (4-34); African American GFR (CKD) >90 (>60 ml/min/1.73 sqM); Anion Gap 8 mmol/L; Blood Urea Nitrogen 18 mg/dL (7-17); Calcium 9.5 mg/dL (8.4-10.2); Carbon Dioxide 24 mmol/L (22-30); Chloride 102 mmol/L (98-107); Glucose 114 mg/dL (74-99); Non-African American GFR(CKD) 90 (>60 ml/min/1.73 sqM); Sodium 134 mmol/L (137-145); Total Bilirubin 0.6 mg/dL (0.2-1.3); Total Protein 6.9 g/dL (6.3-8.2)
[2021-01-19 12:04] LABS: AST 45 U/L (14-36); Alkaline Phosphatase 77 U/L (38-126); Potassium 4.2 mmol/L (3.5-5.1)
[2021-01-19] MEDS: HYDROmorphone 0.5 MG/0.5 ML SYRINGE IVP PRN ×2 (13:03→20:37)
[2021-01-19] MEDS: SODIUM CHLORIDE 0.9% 1,000 ML IV SCH (13:03)
[2021-01-19] MEDS ORDERED: NITROGLYCERIN SL TABS 0.4 MG TAB SUBLINGUAL PRN (15:23)
[2021-01-19] MEDS ORDERED: MECLIZINE 25 MG TAB PO PRN (15:23)
[2021-01-19] MEDS: METOPROLOL TARTRATE 25 MG TAB PO SCH (20:37)
[2021-01-19] MEDS ORDERED: PHENYTOIN SODIUM EXTENDED 100 MG CAP PO SCH (21:00)
--- NOTE | 2021-01-19 21:41 | HP ---
HISTORY AND PHYSICAL CHIEF COMPLAINTS: Fall and hip pain. HISTORY OF PRESENT ILLNESS: This 86-year-old woman with a past medical history of multiple medical problems, including history of DJD, history of seizure disorder, back surgery, section, being followed by Dr. Diaz in the outpatient setting, was previously admitted with pneumonia and influenza. Currently the patient is reporting a fall in the bathroom before getting into the shower. The patient apparently landed on the right hip and is complaining of severe pain in the right hip. Patient also had difficulty in ambulation. Extensive evaluation was done in the ER which showed superior inferior pubic ramus on the right, DJD of the hip, and orthopedic evaluation is underway. A pelvis CT scan which was reviewed personally by me showed pubic ramus bilateral sacral ala fractures on the right. Otherwise, the patient is admitted for evaluation and treatment. There is no history of any fever, rigors or chills. No history of headache, loss of consciousness, seizures. The patient has mild hyponatremia. PAST MEDICAL HISTORY: History of DJD, history of seizure disorder, history of macular degeneration, back surgery, history of breast surgery. HOME MEDICATIONS: Vitamin C, E zinc, copper, phenytoin, Nitrostat, Lopressor, Antivert, Prozac, vitamin D3, Eliquis. ALLERGIES: PENICILLIN, CODEINE AND IODINE. FAMILY HISTORY: History of COPD. History of smoking. SOCIAL HISTORY: History of alcohol occasionally. Previous history of smoking. REVIEW OF SYSTEMS: ENT: Diminished hearing. Diminished vision. CARDIOVASCULAR SYSTEM: No angina, palpitations. RESPIRATORY SYSTEM: As mentioned earlier. GI: No nausea, vomiting, diarrhea. : No dysuria. NERVOUS SYSTEM: No numbness, weakness. ALLERGY/IMMUNOLOGY: No asthma or hay fever. MUSCULOSKELETAL: As mentioned earlier. HEMATOLOGY/ONCOLOGY: No history of anemia. ENDOCRINE: No history of diabetes, hypothyroidism. CONSTITUTIONAL: As mentioned earlier. DERMATOLOGY: Negative. RHEUMATOLOGY: Negative. PSYCHIATRY: Negative. PHYSICAL EXAMINATION: Patient is alert, oriented x3. Pulse is 70, blood pressure 113/70, respiration 18, temperature 98.6, pulse ox 94% on 1 L. HEENT: Conjunctivae normal. Oral mucosa moist. NECK: No jugular venous distention. No carotid bruit. No lymph node enlargement. CARDIOVASCULAR: S1, S2 muffled. No S3. No S4. RESPIRATION: Breath sounds diminished at the bases. No rhonchi. No crackles. ABDOMEN: Soft, nontender. No mass palpable. LEGS: Movements are painful, especially on the right side. Some local tenderness also present. SKIN: No ulcer, rash, bleeding. JOINTS: No active deforming arthropathy. LABS: WBC 10.8, hemoglobin 13.6, sodium 132, potassium 4.2. AST is 45, ALT is 45. ASSESSMENT: 1. Fall and right inferior superior pubic rami fracture and sacral fracture. 2. Gait dysfunction. 3. Severe pain. 4. Hyponatremia. 5. Increased white count. 6. Elevated AST, ALT; mild hepatitis. 7. History of DJD. 8. History of seizure disorder. 9. History of macular degeneration. 10.History of pneumonia. 11.History of back surgery. 12.History of brain biopsy and seizures. 13.History of nicotine dependence. 14.History of coronary artery disease. 15.Mild protein-calorie malnutrition with body mass index of 18.4. 16.FULL CODE. RECOMMENDATIONS AND DISCUSSION: In this 86-year-old woman who presented with multiple complex medical issues, we will monitor the patient closely. I would recommend orthopedic evaluation, symptomatic treatment. There appears to be no indication for surgical intervention at this time; however, the patient is severely debilitated with multiple complex medical issues. We will continue to monitor. We will administer pain medication and for the pain management. Consult PT/OT evaluation to ambulate the patient. Otherwise, home medication will be continued after confirmation. Repeat labs will be ordered. There is no evidence of any seizures at this time, but we will continue to monitor. Prognosis guarded. Further recommendations to follow. A copy of this dictation is being forwarded to Dr. Diaz, who is the primary physician. We will also consider ECF rehab if the patient's condition does not improve. The patient might need more than 2 nights' hospital stay and a full admit. MMODL / IJN: [id number] / MTDDanny
[2021-01-19 21:48] LABS: ALT 36 U/L (4-34); AST 31 U/L (14-36); African American GFR (CKD) >90 (>60 ml/min/1.73 sqM); Albumin 3.2 g/dL (3.5-5.0); Albumin/Globulin Ratio 1.2; Alkaline Phosphatase 62 U/L (38-126); Anion Gap 5 mmol/L; Blood Urea Nitrogen 22 mg/dL (7-17); Calcium 8.8 mg/dL (8.4-10.2); Carbon Dioxide 24 mmol/L (22-30); Chloride 102 mmol/L (98-107); Globulin 2.6 g/dL; Glucose 120 mg/dL (74-99); Non-African American GFR(CKD) 87 (>60 ml/min/1.73 sqM); Potassium 4.2 mmol/L (3.5-5.1); Sodium 131 mmol/L (137-145); Total Bilirubin 0.3 mg/dL (0.2-1.3); Total Protein 5.8 g/dL (6.3-8.2)
[2021-01-20] MEDS: SODIUM CHLORIDE 0.9% 1,000 ML IV SCH ×2 (01:42→14:15)
[2021-01-20] MEDS: KETOROLAC 15 MG/ML 1 ML VIAL IVP PRN ×2 (01:43→15:22)
[2021-01-20 04:52] LABS: Appearance,Urine Clear (Clear); Bilirubin,Urine Negative (Negative); Blood,Urine Negative (Negative); Color,Urine Yellow; Glucose,Urine (UA) Negative (Negative); Hyaline Casts,Urine 1 /lpf (0-2); Ketones,Urine Negative (Negative); Leukocyte Esterase,Urine Moderate (Negative); Mucus,Urine Rare /hpf; Nitrite,Urine Negative (Negative); PH, Urine 6.5 (5.0-8.0); Protein,Urine Trace (Negative); RBC,Urine 2 /hpf (0-5); Specific Gravity,Urine 1.016 (1.001-1.035); Squamous Epithelial Cell,Urine 1 /hpf (0-4); Urobilinogen,Urine <2.0 mg/dL (<2.0); WBC,Urine 1 /hpf (0-5)
[2021-01-20 05:28] LABS: Basophils % (A) 1 %; Eosinophils # (A) 0.3 k/uL (0-0.7); Eosinophils % (A) 4 %; HCT 32.3 % (34.0-46.0); HGB 10.8 gm/dL (11.4-16.0); Lymphocytes # (A) 1.5 k/uL (1.0-4.8); Lymphocytes % (A) 23 %; MCH 33.4 pg (25.0-35.0); MCHC 33.3 g/dL (31.0-37.0); MCV 100.1 fL (80.0-100.0); Mean Platelet Volume 7.9; Monocytes # (A) 0.4 k/uL (0-1.0); Monocytes % (A) 6 %; Neutrophils # (A) 4.3 k/uL (1.3-7.7); Neutrophils % (A) 65 %; Platelet Count 197 k/uL (150-450); RBC 3.23 m/uL (3.80-5.40); WBC 6.7 k/uL (3.8-10.6)
[2021-01-20] MEDS: PANTOPRAZOLE 40 MG TABLET PO SCH (07:50)
[2021-01-20] MEDS: FLUoxetine HCL 10 MG CAP PO SCH (07:50)
[2021-01-20] MEDS: METOPROLOL TARTRATE 25 MG TAB PO SCH ×2 (07:50→20:01)
[2021-01-20] MEDS ORDERED: ACETAMINOPHEN TAB 325 MG TAB PO PRN (07:52)
[2021-01-20] MEDS: VIT A,C & E-LUTEIN-MINERALS 1 EACH TAB PO SCH (11:34)
[2021-01-20] MEDS: CHOLECALCIFEROL 25 MCG (1000 IU) TABLET PO SCH (11:34)
--- NOTE | 2021-01-20 13:05 | P.HPOR ---
History of Present Illness H&P Date: 01/20/21 Chief Complaint: pelvic pain Patient is 86 y/o female presenting to ER yesterday with pelvic pain. Patient is at home so she was trying to shower. Patient says she landed on right side of her butt. Patient points to the pain located in the right side of the sacrum. Patient describes this pain as a deep ache. Patient says whenever she tries to move her right leg or ambulate the pain is exacerbated. Patient rates pain as 10 out of 10. Patient denies any previous orthopedic surgical history. Patient says she takes Eliquis for A. fib. Patient denies chest pain, fever, shortness breath, nausea, vomiting, change in vision, loss of bowel/bladder control. Patient denies saddle anesthesia. Past Medical History Past Medical History: Cancer, Eye Disorder, Osteoarthritis (OA), Seizure Disorder Additional Past Medical History / Comment(s): [id number] seizures, R eye macular degeneration, told she has "alittle irregular heartbeat at times.", arthritis in her back, skin cancer with removal. History of Any Multi-Drug Resistant Organisms: None Reported Past Surgical History: Back Surgery, Breast Surgery, Section, Hysterectomy, Orthopedic Surgery Additional Past Surgical History / Comment(s): Brain biopsy during times of seizures, R submandibular ductoplasty, R shoulder rotator cuff surgery, low back surgery, cyst removed from left breast, colonoscopy. Past Anesthesia/Blood Transfusion Reactions: No Reported Reaction Additional Past Anesthesia/Blood Transfusion Reaction / Comment(s): Pt has never received blood. Smoking Status: Former smoker - Past Family History Father Family Medical History: COPD Additional Family Medical History / Comment(s): Father was a smoker and had emphysema. Mother Family Medical History: No Reported History Additional Family Medical History / Comment(s): Mother was healthy and lived to be 85yrs old. Brother(s) Family Medical History: Cancer Additional Family Medical History / Comment(s): Brother had esophageal cancer. Medications and Allergies Home Medications Medication Instructions Recorded Confirmed Type Phenytoin Sodium Extended 300 mg PO HS 09/12/01/19/21 History [Dilantin] Vit C/E/Zn/Coppr/Lutein/Zeaxan 1 cap PO BID 11/18/16 01/19/21 History [Preservision Areds 2 Softgel] Cholecalciferol [Vitamin D3 (25 1,000 unit PO DAILY 07/26/18 01/19/21 History Mcg = 1000 Iu)] Apixaban [Eliquis] 5 mg PO BID #60 tab 07/28/18 01/19/21 Rx Metoprolol Tartrate [Lopressor] 25 mg PO BID #60 tab 07/28/18 01/19/21 Rx Nitroglycerin Sl Tabs [Nitrostat] 0.4 mg SUBLINGUAL Q5M PRN #20 tab 07/28/18 01/19/21 Rx FLUoxetine HCL [PROzac] 10 mg PO DAILY 01/19/21 01/19/21 History Meclizine [Antivert] 25 mg PO DAILY PRN 01/19/21 01/19/21 History Allergies Allergy/AdvReac Type Severity Reaction Status Date / Time Penicillins Allergy Rash/Hives Verified 01/19/21 11:19 codeine AdvReac Nausea & Verified 01/19/21 11:19 Vomiting iodine AdvReac "passed Verified 01/19/21 11:19 out" Physical Examination Inspection: Negative for any open fractures, erythema, nodules. There is some minimal ecchymosis along the right sacral region Sensation: Sensation is equal, symmetric, intact throughout bilaterally. Palpation: TTP along the sacral region on the right side and right sided pubic laurita. NTTP throughout rest of exam ROM: Full range of motion bilateral upper extremities. Full range of motion left leg. Patient is able to flex and extend right leg with some pain Motor: [employer] strength 5/5 bilaterally. Bilateral upper extremities 5/5 in resisted elbow flexion/extension and resisted internal/external rotation of shoulder, 5/5 in resisted shoulder abduction bilateral lower extremities 5/5 in resisted dorsi and plantarflexion, knee flexion/extension. 4/5 in resisted hip flexion Neurovascular: Refill under 3 seconds. DP pulses 2+, intact. Special tests: Negative Homans bilaterally; negative Demond bilaterally; negative clonus bilaterally Results - Labs Labs: Abnormal Lab Results - Last 24 Hours (Table) 01/19/21 01/19/21 01/19/21 Range/Units 11:19 11:19 21:24 WBC 10.8 H (3.8-10.6) k/uL RBC (3.80-5.40) m/uL Hgb (11.4-16.0) gm/dL Hct (34.0-46.0) % MCV (80.0-100.0) fL Neutrophils # 8.5 H (1.3-7.7) k/uL Sodium 134 L 131 L (137-145) mmol/L BUN 18 H 22 H (7-17) mg/dL Creatinine 0.49 L (0.52-1.04) mg/dL Glucose 114 H 120 H (74-99) mg/dL AST 45 H (14-36) U/L ALT 45 H 36 H (4-34) U/L Total Protein 5.8 L (6.3-8.2) g/dL Albumin 3.2 L (3.5-5.0) g/dL Urine Protein (Negative) Ur Leukocyte Esterase (Negative) Urine Mucus (None) /hpf 01/20/21 01/20/21 Range/Units 04:35 04:37 WBC (3.8-10.6) k/uL RBC 3.23 L (3.80-5.40) m/uL Hgb 10.8 L (11.4-16.0) gm/dL Hct 32.3 L (34.0-46.0) % MCV 100.1 H (80.0-100.0) fL Neutrophils # (1.3-7.7) k/uL Sodium (137-145) mmol/L BUN (7-17) mg/dL Creatinine (0.52-1.04) mg/dL Glucose (74-99) mg/dL AST (14-36) U/L ALT (4-34) U/L Total Protein (6.3-8.2) g/dL Albumin (3.5-5.0) g/dL Urine Protein Trace H (Negative) Ur Leukocyte Esterase Moderate H (Negative) Urine Mucus Rare H (None) /hpf H & H 01/19/21 01/20/21 Range/Units 11:19 04:37 Hgb 13.1 10.8 L (11.4-16.0) gm/dL Hct 39.1 32.3 L (34.0-46.0) % Result Diagrams: 01/20/21 04:37 01/19/21 21:24 Assessment and Plan Assessment: 1. Superior/inferior pubic rami fracture; right sacral alar fracture s/p fall Plan: 1. Superior/inferior pubic rami fracture; right sacral alar fracture - patient stable at bedside this morning. No urgent surgical intervention recommended at this time. We'll continue to follow patient while in hospital. 2. Appreciate medical management 3. Pain management - stable at this time 4. GI prophylaxis - protonix 5. DVT prophylaxis - mechanical 6. PT/OT - weightbearing as tolerated with walker for assistance 7. Discharge planning Time with Patient: Less than 30
[2021-01-20] MEDS: APIXABAN 5 MG TAB PO SCH ×2 (14:10→20:01)
--- NOTE | 2021-01-20 18:44 | PN ---
PROGRESS NOTE DATE OF SERVICE: 01/20/2021 This 87-year-old woman was admitted with fall and pelvis fracture, is being closely monitored. No chest pain. No palpitations. No fever. PHYSICAL EXAM: On exam, alert and oriented. Pulse 71, blood pressure 130/64, respiration 18, temperature 98.4, pulse ox 92% on room air. HEENT: Conjunctivae normal. Oral mucosa moist. NECK: No jugular venous distention. No lymph node enlargement. CARDIOVASCULAR: S1, S2, muffled. No S3, no S4, RESPIRATORY: Diminished breath sounds at the bases. No rhonchi, no crackles. ABDOMEN: Soft, nontender. LEGS: Movement of the right leg is painful. NERVOUS SYSTEM: No focal deficits. LAB: WBC 6.7, hemoglobin 10.2, sodium is 131, glucose 121. UA is unremarkable. ASSESSMENT: 1. Status post fall and pelvis fracture with inferior and superior pubic rami fractures on the right side and sacral fracture. 2. Gait dysfunction. 3. Severe pain. 4. Hyponatremia. 5. Increased WBC, possibly reactive. 6. Increased AST ALT, mild hepatitis of undetermined etiology. 7. History of DJD. 8. History of seizure disorder. 9. History of macular degeneration. 10.History of pneumonia. 11.History of back surgery. 12.History of brain biopsy and seizures. 13.History of nicotine dependence. 14.History of coronary artery disease. 15.Mild protein calorie malnutrition, body mass index 18.4. 16.FULL CODE. RECOMMENDATIONS: Recommend to continue current management, symptomatic treatment and pain management. Orthopedic evaluation. Possible ECF rehab because of multiple complex medical issues and further recommendations to follow. MMODL / IJN: [id number] /
[2021-01-20] MEDS ORDERED: [UNRECOGNIZED DRUG - OTHER] PO SCH (21:00)
[2021-01-21] MEDS: SODIUM CHLORIDE 0.9% 1,000 ML IV SCH (02:46)
[2021-01-21] MEDS: METOPROLOL TARTRATE 25 MG TAB PO SCH (08:13)
[2021-01-21] MEDS: APIXABAN 5 MG TAB PO SCH (08:13)
[2021-01-21] MEDS: FLUoxetine HCL 10 MG CAP PO SCH (08:14)
[2021-01-21] MEDS: PANTOPRAZOLE 40 MG TABLET PO SCH (08:15)
[2021-01-21] MEDS: KETOROLAC 15 MG/ML 1 ML VIAL IVP PRN ×2 (08:22→15:24)
[2021-01-21] MEDS: VIT A,C & E-LUTEIN-MINERALS 1 EACH TAB PO SCH (11:18)
[2021-01-21] MEDS: CHOLECALCIFEROL 25 MCG (1000 IU) TABLET PO SCH (11:18)
[2021-01-21 12:18] VITALS: BP 118/66; PULSE 66; RESP 17; TEMP 98.2
--- NOTE | 2021-01-21 12:55 | P.PN ---
Subjective Progress Note Date: 01/21/21 Patient seen and examined resting comfortably no issues overnight minimal pain at this time did attempt to ambulate with assist yesterday slightly difficult but able to perform denies a numbness or tingling denies any fevers chills shortness breath or chest pain Objective - Vital Signs Vital signs: Vital Signs Temp 98.2 F 01/21/21 12:18 Pulse 66 01/21/21 12:18 Resp 17 01/21/21 12:18 BP 118/66 01/21/21 12:18 Pulse Ox 95 01/21/21 12:18 Intake & Output 01/20/21 01/21/21 01/21/21 18:59 06:59 18:59 Intake Total 900 1120 Balance 900 1120 Intake: Intake, IV Titration 900 Amount Sodium Chloride 0.9% 1, 900 000 ml @ 75 mls/hr IV . [id number] NARINDER Rx#:[id number] Oral 1120 Other: # Voids 1 2 # Bowel Movements 1 1 - Exam Patient is alert and oriented 3 appears well-nourished well-hydrated is in no acute distress. They do not appear septic. There is TTP run the pubic area and the sacroiliac and right Lower extremities with 4+ out of 5 strength in all major muscle groups Upper extremities show 5/5 strength in all major muscle groups. There is FROM that is painless of the b/l UE and LE in all major joints. Several right lower extremity where she has some pain with range of motion of the hip however no pain with logroll They are intact to light touch sensation in L2 to S1 nerve distribution. DTR 2/4 all upper and lower extremities Patient has palpable dorsalis pedis was posterior tibial pulses. Palpable Rad Ulnar pulses b/l Compartments are soft and compressible. Patient shows a negative Homans Cranial nerves II through XII are grossly intact. Special Testing: Pelvis stable - Labs CBC & Chem 7: 01/20/21 04:37 01/19/21 21:24 Assessment and Plan Assessment: 86-year-old female status post fall from standing with a right LC 1 pelvic fracture Right hip contusion Plan: -Appreciate warehouse consultant and team management. -Activity: Ambulate QID, OOB all meals, up and about, limit lifting bending twisting to less than 5 lbs. Use walker or cane if needed for stability. -Daily PT/OT, increase ambulation strength and balance. -Weightbearing as tolerated with assist -Pain control: [Adequate at this time] -Meds: [reviewed] -GI ppx: senna, Miralax -DVT PPX: Mechanical -Hygiene: Daily hygiene and showers -Encourage IS 10x/hr -Dispo: No orthopedic surgical intervention warranted at this time she is stable
[2021-01-21 13:25] VITALS: BMI 18.3
--- NOTE | 2021-01-21 14:13 | P.DS ---
Providers Date of admission: 01/19/21 11:42 Expected date of discharge: 01/21/21 Attending physician: Lindsey Lopez Consults: 01/19/21 11:17 Consult Physician Routine Consulting Provider: Robert Kelley Consult Reason/Comments: pelvic fx Do you want consulting provider notified?: Yes Primary care physician: Lindsey Lopez Hospital Course: Final diagnosis Status post fall and pelvis fracture with inferior and superior pubic rami fractures on the right side and sacral fracture Gait dysfunction Severe pain Hyponatremia Increased white blood count, possibly reactive Increased AST, ALT, mild hepatitis of undetermined etiology History of degenerative joint disease History of seizure disorder History of macular degeneration History of pneumonia History of back surgery History of brain biopsy and seizures history of nicotine dependence history of coronary artery disease Mild protein calorie malnutrition, with a body mass index of 18.4 Full code Discharge disposition Patient is being discharged in a stable condition with guarded prognosis to [facility]. Patient will follow-up with Dr. Portillo in the outpatient setting upon discharge. Patient is to also follow-up with orthopedics Dr. Kelley outpatient in 1-2 weeks. Recommend repeat labs in 2-3 days to monitor hemoglobin, white blood count, kidney functions, and electrolytes. Total time taken is greater than 35 minutes. Hospital course This is a 86-year-old female who was recently admitted with fall and pelvis fracture and being closely monitored. Patient was evaluated by orthopedic surgery recommending outpatient follow-up in the clinic and no surgical intervention warranted at this time. Patient to continue with weightbearing as tolerated and will be going to [facility] for continued PT/OT therapy. Currently no reports of chest pain, shortness of breath, or palpitations. Patient is afebrile. No reports of nausea or vomiting and patient is tolerating diet. Patient will be going to [facility] today. On exam vital signs are stable. Cardio S1, S2 are muffled. Respiratory system shows diminished breath sounds at the bases with no wheezing or rhonchi noted. Abdomen is soft and obese, and nontender. Nervous system shows diffuse weakness. Please refer to medication reconciliation sheet for a list of medications. Patient Condition at Discharge: Stable Plan - Discharge Summary New Discharge Prescriptions: New Pantoprazole [Protonix] 40 mg PO AC-BRKFST Acetaminophen Tab [Tylenol] 650 mg PO Q6HR PRN tab PRN Reason: Fever and/ or Mild Pain traMADol HCl [Ultram] 50 mg PO TID 3 Days #12 tab Continue Phenytoin Sodium Extended [Dilantin] 300 mg PO HS Vit C/E/Zn/Coppr/Lutein/Zeaxan [Preservision Areds 2 Softgel] 1 cap PO BID Cholecalciferol [Vitamin D3 (25 Mcg = 1000 Iu)] 1,000 unit PO DAILY Apixaban [Eliquis] 5 mg PO BID #60 tab Metoprolol Tartrate [Lopressor] 25 mg PO BID #60 tab Nitroglycerin Sl Tabs [Nitrostat] 0.4 mg SUBLINGUAL Q5M PRN #20 tab PRN Reason: Chest Pain Meclizine [Antivert] 25 mg PO DAILY PRN PRN Reason: DIZZINESS FLUoxetine HCL [PROzac] 10 mg PO DAILY Discharge Medication List Phenytoin Sodium Extended [Dilantin] 300 mg PO HS 09/13/15 [History] Vit C/E/Zn/Coppr/Lutein/Zeaxan [Preservision Areds 2 Softgel] 1 cap PO BID 11/18/16 [History] Cholecalciferol [Vitamin D3 (25 Mcg = 1000 Iu)] 1,000 unit PO DAILY 07/26/18 [History] Apixaban [Eliquis] 5 mg PO BID #60 tab 07/28/18 [Rx] Metoprolol Tartrate [Lopressor] 25 mg PO BID #60 tab 07/28/18 [Rx] Nitroglycerin Sl Tabs [Nitrostat] 0.4 mg SUBLINGUAL Q5M PRN #20 tab 07/28/18 [Rx] FLUoxetine HCL [PROzac] 10 mg PO DAILY 01/19/21 [History] Meclizine [Antivert] 25 mg PO DAILY PRN 01/19/21 [History] Acetaminophen Tab [Tylenol] 650 mg PO Q6HR PRN tab 01/21/21 [Rx] Pantoprazole [Protonix] 40 mg PO AC-BRKFST 01/21/21 [Rx] traMADol HCl [Ultram] 50 mg PO TID 3 Days #12 tab 01/21/21 [Rx] Follow up Appointment(s)/Referral(s): Kenna Portillo DO [REFERRING] - 1-2 days Robert Kelley DO [Doctor of Osteopathic Medicine] - 2 Weeks Ambulatory/Diagnostic Orders: Complete Blood Count w/diff [LAB.AMB] Time Frame: 3 Days, Location: None Selected Activity/Diet/Wound Care/Special Instructions: Activity as tolerated Follow-up with primary care provider upon discharge Follow-up with orthopedics as discussed and scheduled in 2-3 weeks Continue with home medications Repeat labs of CBC and BMP in 2-3 days Continue regular diet Continue with Orthopedic recommendations of weightbearing as tolerated Discharge Disposition: TRANSFER TO SNF/ECF
== END 2021-01-21 15:55 | DRG 552 ==
LOC: EC 08:20 → 5NMEDONC 11:42
PROVIDERS: ADMIT Hospitalist; ATTEND Hospitalist
DX: S32.119A Unspecified Zone I fracture of sacrum, initial encounter for closed fracture (principal); S32.599A Other specified fracture of unspecified pubis, initial encounter for closed fracture; E87.1 Hypo-osmolality and hyponatremia; Z68.1 Body mass index [BMI] 19.9 or less, adult; E44.1 Mild protein-calorie malnutrition; G40.909 Epilepsy, unspecified, not intractable, without status epilepticus; I25.10 Atherosclerotic heart disease of native coronary artery without angina pectoris; I48.91 Unspecified atrial fibrillation; K75.9 Inflammatory liver disease, unspecified; S70.01XA Contusion of right hip, initial encounter; W18.2XXA Fall in (into) shower or empty bathtub, initial encounter; Y92.009 Unspecified place in unspecified non-institutional (private) residence as the place of occurrence of the external cause; Y93.E1 Activity, personal bathing and showering; Z79.01 Long term (current) use of anticoagulants; Z79.82 Long term (current) use of aspirin; Z79.899 Other long term (current) drug therapy; Z80.0 Family history of malignant neoplasm of digestive organs; Z82.5 Family history of asthma and other chronic lower respiratory diseases; Z85.828 Personal history of other malignant neoplasm of skin; Z87.01 Personal history of pneumonia (recurrent); Z87.891 Personal history of nicotine dependence; Z90.710 Acquired absence of both cervix and uterus
CPT/HCPCS: 36415; 70450; 72125; 72192; 73502; 80053; 81001; 85025; 94760; 96372; 99285

== ENCOUNTER → 2022-04-20 | Outpatient (CLI) | payer MEDICARE, BC ==
--- NOTE | 2022-04-21 07:30 | BD ---
EXAMINATION TYPE: Axial Bone Density DATE OF EXAM: 04/20/2022 COMPARISON: DEXA bone scan 2019 CLINICAL HISTORY: 87 years year old Female. ICD-10 CODE: Z78.0 ASYMPTOMATIC MENOPAUSAL STATE Height: 4 FT 11 IN Weight: 88 FRAX RISK QUESTIONS: Alcohol (3 or more units per day): NO Family History (Parent hip fracture): NO Glucocorticoids (More than 3mos): NO (Ex: prednisone, prednisolone, methylprednisolone, dexamethasone, and hydrocortisone). History of Fracture in Adulthood: YES Secondary Osteoporosis: 1. Type 1 Diabetes: NO 2. Hyperthyroidism: NO 3. Menopause before 45: YES 4. Malnutrition: NO 5. Chronic liver disease: NO Rheumatoid Arthritis: NO Current Tobacco Use: NO RISK FACTORS HISTORY OF: Surgery to Spine/Hip(right/left)/Wrist (right/left): PELVIC FX 2020 Family History of Osteoporosis: NO Active: YES Diet low in dairy products/other sources of calcium: NO Postmenopausal woman: YES Take estrogen and/or progesterone medications: NO Lost more than 2 inches in height since high school: NO Frequent falls: YES Poor Health: GOOD Hyperparathyroidism: NO Adrenal Insufficiency: NO MEDICATIONS: Additional Medications: VERTIGONE, ELIIQUIS,FLUOXETINE, LORATADINE, PRESERVISION, GABAPENTIN, DILANTI N Additional History: EXAM MEASUREMENTS: Bone mineral densitometry was performed using the [employer]. Bone mineral density as measured about the Lumbar spine is: ----- L1-L4(G/cm2): 1.101 T Score Values are as follows: ----- L1: -1.8 ----- L2: -2.1 ----- L3: 0.1 ----- L4: 0.8 ----- L1-L4: -0.7 Bone mineral density has: DECREASED -1.4 % since study of: 2019 Bone mineral density about the R hip (g/cm2): 0.735 Bone mineral density about the L hip (g/cm2): 0.723 T Score values are as follows: -----R Neck: -2.2 -----L Neck: -2.3 -----R Total: -2.3 -----L Total: -2.1 Bone mineral density has: DECREASED -11.2 % since study of: 2019 FRAX%s: The graph provided illustrates a 3.4 % chance for a major osteoporotic fx and a 1.4 % chance for the hips probability for fx in 10 years time. IMPRESSION: Osteopenia (T Score between -2.5 and -1) remains present. There is slightly increased risk of fracture and the patient may be considered for treatment. Re-Screen 2-5 years. NOTE: T-SCORE=SD OF THE YOUNG ADULT MEAN.
== END | disposition home or self-care (01) ==
LOC: RADBDWWP 13:22
PROVIDERS: ATTEND Family Medicine
DX: M85.89 Other specified disorders of bone density and structure, multiple sites (principal); Z78.0 Asymptomatic menopausal state
CPT/HCPCS: 77080

== ENCOUNTER → 2023-01-21 | Outpatient (CLI) | payer MEDICARE, BC ==
--- NOTE | 2023-01-21 14:26 | XR ---
EXAMINATION TYPE: XR thoracic spine 2V DATE OF EXAM: 01/21/2023 2:21 PM INDICATION: Patient age:Female; 88 years old; Reason for study: [id number] THOR PAIN,LBP; YCH. COMPARISON: CT chest 07/28/2018, chest radiograph 08/16/2018 TECHNIQUE: Frontal and lateral views of the spine. FINDINGS: There are 5 lumbar type vertebral bodies identified. No evidence of any acute osseous patho logy. No evidence of loss of vertebral body height is seen. There is normal alignment of the lumbar vertebral bodies. Multilevel disc space narrowing with endplate sclerosis and anterior osteophytosis. Hyperinflation compatible with COPD. IMPRESSION: 1. No acute process. 2. Mild multilevel degenerative disc disease.
--- NOTE | 2023-01-21 15:37 | XR ---
EXAMINATION TYPE: XR lumbar spine 2 or 3V DATE OF EXAM: 01/21/2023 CLINICAL HISTORY: pain, fall TECHNIQUE: Three views of the lumbar spine are submitted. COMPARISON: Number spine radiograph 06/30/2021 FINDINGS: There are 5 lumbar type vertebral bodies identified. Acute appearing anterior wedge compression defor mity of involving the superior endplate of the L1 vertebral body with approximately 15 % height loss and no retropulsion. Chronic appearing L4 central compression deformity with approximately 20% height loss and no retropulsion. Dextrocurvature of the lumbar spine with apex at L4. Multilevel degenerati ve disc disease with disc space narrowing, endplate sclerosis, and anterior osteophytosis. Straighten ing of the normal lumbar lordosis. Multilevel facet arthropathy. No spondylolisthesis. The overlying soft tissue appears unremarkable. IMPRESSION: 1. Acute appearing anterior wedge compression deformity of the L1 vertebral body with approximately 15% height loss and no retropulsion. Consider further evaluation with CT lumbar spine. 2. Chronic appearing compression deformity of the L4 vertebral body. 3. Dextrocurvature of the lumbar spine. 4. Mild to moderate multilevel degenerative disc disease and facet arthropathy.
== END | disposition home or self-care (01) ==
LOC: RADXRYALE 14:03
PROVIDERS: ATTEND Family Medicine
DX: M51.36 Other intervertebral disc degeneration, lumbar region (principal); M51.34 Other intervertebral disc degeneration, thoracic region; W01.0XXA Fall on same level from slipping, tripping and stumbling without subsequent striking against object, initial encounter
CPT/HCPCS: 72070; 72100